=== PATIENT | female | born 1980 | race Hispanic/Latino ===

== ENCOUNTER 2020-06-20 23:21 | Emergency (ER) | payer OTHER, SELFPAY ==
--- NOTE | ~2020-06-20 | CT_ITS ---
EXAMINATION: CT abdomen pelvis w con EXAM DATE: 06/21/2020 01:51 INDICATION: Medial abdominal pain radiating to back. Vomiting and diarrhea. TECHNIQUE: Spiral CT of the abdomen and pelvis was performed following intravenous injection of 100 m L Omnipaque 350. Axial, coronal and sagittal images of the abdomen and pelvis were reviewed. The do se-length product (DLP) for this examination was 367.05 mGy-cm. The exposure was tailored according to patient size (auto mA exposure control), and iterative reconstruction (ASIR) was used as additiona l dose reduction technique. There is no prior study for comparison. FINDINGS: The liver, spleen, adrenal glands and pancreas are unremarkable. There are cholecystectomy clips. Portal and splenic veins are patent. Kidneys enhance symmetrically. There is no hydronephr osis. Heterogeneous uterine enhancement probably phasic. There is peripherally enhancing left ovari an follicle, likely the involuting dominant follicle or hemorrhagic cyst. The bladder is unremarkabl e. There is no retroperitoneal or pelvic lymphadenopathy. There are no findings to suggest appendicitis. There are surgical changes from intact gastric bypass surgery. Fluid-filled colon to the rectum without colonic wall thickening. Correlate for diarrhea/g astroenteritis. No free intraperitoneal gas. The heart is normal in size. There are no pericardi al or pleural effusions. The lung bases are unremarkable. The bones are unremarkable. IMPRESSION: 1. Fluid-filled colon without wall thickening. Consider diarrhea/gastroenteritis. 2. Probable involuting left ovarian hemorrhagic or physiologic cyst. Heterogeneous myometrium could be phasic but pelvic sonogram is better for evaluating these structures. Reviewed, dictated and finalized at location A. IMPRESSION: 1. Fluid-filled colon without wall thickening. Consider diarrhea/gastroenterit is. 2. Probable involuting left ovarian hemorrhagic or physiologic cyst. Heterogen eous myometrium could be phasic but pelvic sonogram is better for evaluating th ruba structures.
[2020-06-20 23:53] VITALS: BP 103/58; PULSE 100; RESP 18; TEMP 36.3; O2SAT 98
[2020-06-21 00:08] LABS: Basophils Absolute Auto 0.1 K/mm3 (0.0-0.1); Basophils Percent Auto 0.5 % (0.2-1.2); Eosinophils Absolute Auto 0.1 K/mm3 (0-0.3); Eosinophils Percent Auto 0.5 % (0-4.4); Hematocrit 38.8 % (37.0-47.0); Hemoglobin 12.9 g/dL (12.0-15.0); Immature Granulocyte Absolute 0.06 K/mm3 (0.00-0.031); Immature Granulocyte Percent A 0.5 % (0-0.5); Lymphocytes Absolute Auto 0.82 K/mm3 (0.9-3.2); Lymphocytes Percent Auto 6.7 % (18.3-44.2); Mean Corpuscular HGB Conc 33.2 g/dl (32-36); Mean Corpuscular Hemoglobin 28.4 pg (26-34); Mean Corpuscular Volume 85.3 fl (80-100); Mean Platelet Volume 11.5 fl (7.4-10.4); Monocytes Absolute Auto 0.7 K/mm3 (0.1-0.6); Monocytes Percent Auto 5.6 % (2.6-8.5); Neutrophils Absolute Auto 10.5 K/mm3 (1.3-6.7); Neutrophils Percent Auto 86.2 % (45.5-73.1); Platelet Count Result 251 k/mm3 (150-375); Red Blood Count 4.55 M/mm3 (4.2-5.4); Red Cell Distribution Width 13.1 % (11.5-14.5); White Blood Count 12.2 K/mm3 (4.5-10.0)
[2020-06-21 00:19] LABS: Potassium 4.1 mmol/L (3.4-5.0)
[2020-06-21 00:23] LABS: Alanine Aminotransferase 18 U/L (4-35); Albumin Level 4.5 g/dL (3.5-5.1); Alkaline Phosphatase 69 U/L (38-126); Anion Gap 5 mmol/L (8-16); Aspartate Amino Transferase 31 U/L (14-36); Bilirubin,Total 0.4 mg/dL (0.2-1.3); Blood Urea Nitrogen 15 mg/dL (7-17); Calcium 8.4 mg/dL (8.4-10.2); Carbon Dioxide 28 mmol/L (22-30); Chloride 105 mmol/L (98-107); Estimated CRCL calculation 99 ml/min; Estimated Glomerular Filt Rate > 60; Glucose 106 mg/dL (65-105); Lipase 105 U/L (23-300); Sodium 138 mmol/L (137-145)
[2020-06-21] MEDS: MORPHINE SULFATE (*CRX) 4 MG/ML INJ IV PUSH (01:26)
[2020-06-21] MEDS: ONDANSETRON INJ 4 MG/2 ML VIAL IV PUSH (01:28)
[2020-06-21 01:37] VITALS: PULSE 70; O2SAT 97
[2020-06-21] MEDS: SODIUM CHLORIDE 0.9% IV 1,000 ML 999 ML IV CONT (01:40)
[2020-06-21 01:54] VITALS: O2SAT 97
[2020-06-21 01:56] VITALS: BP 108/69; PULSE 82; O2SAT 97
[2020-06-21 02:00] VITALS: O2SAT 97
--- NOTE | 2020-06-21 02:00 | PC.NURSE ---
Pt confirmed with CT that she is not .
--- NOTE | 2020-06-21 02:32 | ED.GENADULT ---
HPI - General Adult General Chief complaint: Abdominal Pain Stated complaint: Abd Pain Time Seen by Provider: 06/21/20 00:59 Related Data Allergies Allergy/AdvReac Type Severity Reaction Status Date / Time No Known Allergies Allergy Unverified 06/20/20 23:58 PENDING SALE TO [facility] Social History Social History Gender identity (if verbalized by the patient): Female Sexual Orientation (if Verbalized by the Patient): Straight or Heterosexual Course Vital Signs Vital signs: Vital Signs Temperature 36.3 C L 06/20/20 23:53 Pulse Rate 100 06/20/20 23:53 Respiratory Rate 18 06/20/20 23:53 Blood Pressure 103/58 L 06/20/20 23:53 Pulse Oximetry 98 06/20/20 23:53 Temperature 36.3 C L 06/20/20 23:53 Pulse Rate 100 06/20/20 23:53 Respiratory Rate 18 06/20/20 23:53 Blood Pressure 103/58 L 06/20/20 23:53 Pulse Oximetry 98 06/20/20 23:53 Medical Decision Making Vital Signs Vital Signs: Vital Signs Temperature 36.3 C L 06/20/20 23:53 Pulse Rate 100 06/20/20 23:53 Respiratory Rate 18 06/20/20 23:53 Blood Pressure 103/58 L 06/20/20 23:53 Pulse Oximetry 98 06/20/20 23:53 Temperature 36.3 C L 06/20/20 23:53 Pulse Rate 100 06/20/20 23:53 Respiratory Rate 18 06/20/20 23:53 Blood Pressure 103/58 L 06/20/20 23:53 Pulse Oximetry 98 06/20/20 23:53 Lab Data Result diagrams: 06/20/20 23:59 06/20/20 23:59 Labs: Lab Results 06/20/20 06/20/20 06/21/20 Range/Units 23:59 23:59 02:27 WBC 12.2 H (4.5-10.0) K/mm3 RBC 4.55 (4.2-5.4) M/mm3 Hgb 12.9 (12.0-15.0) g/dL Hct 38.8 (37.0-47.0) % MCV 85.3 (80-100) fl MCH 28.4 (26-34) pg MCHC 33.2 (32-36) g/dl RDW 13.1 (11.5-14.5) % Plt Count 251 (150-375) k/mm3 MPV 11.5 H (7.4-10.4) fl Immature Gran % (Auto) 0.5 (0-0.5) % Neut % (Auto) 86.2 H (45.5-73.1) % Lymph % (Auto) 6.7 L (18.3-44.2) % [place] % (Auto) 5.6 (2.6-8.5) % Eos % (Auto) 0.5 (0-4.4) % Baso % (Auto) 0.5 (0.2-1.2) % Lymph # (Auto) 0.82 L (0.9-3.2) K/mm3 [place] # (Auto) 0.7 H (0.1-0.6) K/mm3 Eos # (Auto) 0.1 (0-0.3) K/mm3 Baso # (Auto) 0.1 (0.0-0.1) K/mm3 Abs Immat Gran (auto) 0.06 H (0.00-0.031) K/mm3 Absolute Neuts (auto) 10.5 H (1.3-6.7) K/mm3 Absolute Nucleated RBC 0.0 (0.0-0.012) K/mm3 Nucleated RBC % 0.0 (0.0-0.2) % Sodium 138 (137-145) mmol/L Potassium 4.1 (3.4-5.0) mmol/L Chloride 105 (98-107) mmol/L Carbon Dioxide 28 (22-30) mmol/L Anion Gap 5 L (8-16) mmol/L BUN 15 (7-17) mg/dL Creatinine 0.60 L (0.7-1.0) mg/dL Estim Creat Clear Calc 99 ml/min Estimated GFR > 60 (59 - ) Glucose 106 H (65-105) mg/dL Calcium 8.4 (8.4-10.2) mg/dL Total Bilirubin 0.4 (0.2-1.3) mg/dL AST 31 (14-36) U/L ALT 18 (4-35) U/L Alkaline Phosphatase 69 (38-126) U/L Total Protein 8.0 (6.3-8.2) g/dL Albumin 4.5 (3.5-5.1) g/dL Lipase 105 (23-300) U/L Urine Color Yellow (Yellow) Urine Appearance Clear (Clear) Urine pH 6.0 (5.0-9.0) Ur Specific [place] 1.005 (1.001-1.035) Urine Protein Negative (Negative) mg/dL Urine Glucose (UA) Negative (Negative) mg/dL Urine Ketones Negative (Negative) mg/dL Ur Blood (Man) Negative (Negative) Urine Nitrate Negative (Negative) Urine Bilirubin Negative (Negative) Urine Urobilinogen Negative (<2.0) mg/dL Leukocyte Esterase Rfl Negative (Negative) JENNIFER/UL Urine RBC 3-5 H (0-2) /hpf Urine WBC 0-3 /hpf Ur Squamous Epith Cells Occasional (Few) /hpf Urine Bacteria Trace /hpf Urine Mucus Rare /lpf Discharge Plan Discharge Clinical Impression: Acute generalized abdominal pain, Nausea & vomiting Patient Disposition: Home, Self-Care Condition: Stable Instructions: Antibiotic Form, Acute Nausea and Vomiting (ED), Abdominal Pain (ED) P
[2020-06-21 02:45] LABS: Add Urine Microscopic? NO; Appearance Urine Clear (Clear); Bacteria Urine Trace /hpf; Bilirubin Urine Negative (Negative); Blood Urine Negative (Negative); Color Urine Yellow (Yellow); Glucose Urine UA Negative (Negative); Ketones Urine Negative (Negative); Leukocyte Esterase Ur Negative LEU/UL (Negative); Mucus Urine Rare /lpf; Nitrate Urine Negative (Negative); Protein Urine Negative (Negative); Squamous Epithelial Cell Urine Occasional /hpf (Few); Urobilinogen Urine Negative mg/dL (<2.0); WBC Urine 0-3 /hpf
[2020-06-21 03:02] LABS: Specific Grav Ur 1.005 (1.001-1.035)
[2020-06-21 03:25] VITALS: BP 110/70; PULSE 76; RESP 20; TEMP 36.7; O2SAT 100
== END 2020-06-21 03:25 | disposition home or self-care (01) ==
PROVIDERS: Emergency Provider Emergency Medicine; PCP Registered Nurse
DX: R10.84 Generalized abdominal pain (principal); R11.2 Nausea with vomiting, unspecified
CPT/HCPCS: 36415; 74177; 80053; 81003; 83690; 85025; 96361; 96374; 96375; 99284; J2270; J2405; J7030; Q9967

== ENCOUNTER 2020-07-25 22:35 | Emergency (ER) | payer OTHER, SELFPAY ==
--- NOTE | ~2020-07-25 | CT_ITS ---
EXAMINATION: CT abdomen pelvis wo con DATE: 07/25/2020 23:49 INDICATION: Abdominal cramping TECHNIQUE: Computed tomography (CT) of the abdomen and pelvis was performed without intravenous contr ast. The dose-length product (DLP) was 342.39 mGy-cm. Automated exposure control and iterative recons truction technique were employed. COMPARISON: 06/21/2020 FINDINGS: Minimal dependent atelectasis is present in the lung bases. The heart size is normal. Surgi josé manuel changes of the stomach are consistent with gastric bypass. The gallbladder is surgically absent. The liver, spleen, pancreas, and adrenal glands are normal. The kidneys are unremarkable. No patholog ically enlarged abdominal or pelvic lymph nodes are identified. There is no free intraperitoneal gas or evidence of bowel obstruction. The uterus is enlarged and demonstrates heterogeneous attenuation t he appendix is normal. There is mild lumbar spondylosis. IMPRESSION: 1. Enlarged and heterogeneous appearing uterus of unclear significance, difficult to further characte rize without intravenous contrast. Consider follow-up pelvic ultrasound. Reviewed, dictated and finalized at location A. IMPRESSION: 1. Enlarged and heterogeneous appearing uterus of unclear significance, difficu lt to further characterize without intravenous contrast. Consider follow-up pel nba ultrasound.
[2020-07-25 22:42] VITALS: BP 99/56; PULSE 59; RESP 22; TEMP 36.8; O2SAT 100
[2020-07-25 22:53] VITALS: BP 104/58; PULSE 62; RESP 20; O2SAT 99
--- NOTE | 2020-07-25 23:36 | ED.ABDPAIN ---
HPI - Abdominal Pain General Chief Complaint: Abdominal Pain Stated Complaint: abdominal pain post pill Time Seen by Provider: 07/25/20 23:09 Source: patient Mode of arrival: ambulatory Limitations: no limitations History of Present Illness HPI narrative: Patient is a 39 year old female who presents with abdominal cramping. Patient does not speak [place], lang interpreter at bedside. Patient reports that she was 8 weeks and seen at clinic yesterday for consultation of . She reports taking Cytotec today at approximately 1730 and now experiencing abdominal pain and cramping. Patient reports pain as 10/10. Patient is Chinese speaking only, lang interpreter at bedside with patient. MD elicited complaint: abdominal pain Related Data Allergies Allergy/AdvReac Type Severity Reaction Status Date / Time No Known Allergies Allergy Verified 07/25/20 23:44 Review of Systems Review of Systems: Narrative: CONSTITUTIONAL: Denies fever, chills, or sweats. EYES: Denies visual changes, redness, or discharge. ENT: Denies rhinorrhea, congestion, sore throat, or otalgia. CARDIOVASCULAR: Denies chest pain, palpitations, or edema. RESPIRATORY: Denies cough or dyspnea. GASTROINTESTINAL: Denies abdominal pain, nausea, vomiting, or diarrhea. GENITOURINARY: Reports pelvic cramping SKIN: Denies rash or itching. MUSCULOSKELETAL: Denies back pain, joint pain, or myalgia. NEUROLOGIC: Denies headache, numbness, dizziness, or weakness. PSYCHIATRIC: Denies anxiety or depression. PMFSH Past Medical History Medical History (Updated 07/26/20 @ 00:56 by HAIM Garcia) No significant past medical history Surgical History Surgical History (Updated 07/26/20 @ 00:56 by HAIM Garcia) History of sleeve gastrectomy Social History Social History (Updated 07/25/20 @ 23:49 by HAIM Garcia) Smoking status: Never smoker Alcohol intake: never Substance use: never Living arrangements: with family Comments At the time of signature, I have reviewed and agree with nursing past medical, surgical, social, and family history unless otherwise noted. Please see nursing chart for further information. There is no relevant family history pertinent to the presenting complaint. Exam Narrative: Exam Narrative: GENERAL: Well-appearing, well-nourished, and in no acute distress. HEAD: Normocephalic, atraumatic. EYES: EOMI. No redness or drainage. Conjunctiva are normal. ENT: Mucous membranes pink and moist. CHEST: No respiratory distress. Clear to auscultation. HEART: Regular rate and rhythm. GI: Soft, nontender without rebound, or guarding. No distention. Bowel sounds normal in all quadrants. MUSCULOSKELETAL: No bony tenderness. EXTREMITIES: Normal range of motion. No edema. SKIN: Warm, dry, no rash. NEURO: No focal deficits. Alert and oriented x3. Gait steady. PSYCH: Normal affect. No signs of depression or anxiety. Course Vital Signs Vital signs: Vital Signs Temperature 36.8 C 07/25/20 22:42 Pulse Rate 59 L 07/25/20 22:42 Respiratory Rate 22 H 07/25/20 22:42 Blood Pressure 99/56 L 07/25/20 22:42 Pulse Oximetry 100 07/25/20 22:42 Temperature 36.8 C 07/25/20 22:42 Pulse Rate 62 07/25/20 22:53 Respiratory Rate 20 07/25/20 22:53 Blood Pressure 104/58 L 07/25/20 22:53 Pulse Oximetry 99 07/25/20 22:53 Reviewed MDM - Abdominal Pain MDM Narrative Medical decision making narrative: Patient's labs are unremarkable, CT shows enlarged and heterogeneous appearing uterus likely from and subsequent . Patient instructed on follow up care. Patient is stable for discharge to home with outpatient follow up as discussed. Lab Data Result diagrams: 07/25/20 23:44 07/25/20 23:44 Labs: Lab Results 07/25/20 07/25/20 Range/Units 23:44 23:44 WBC 11.4 H (4.5-10.0) K/mm3 RBC 3.60 L (4.2-5.4) M/mm3 Hgb 10.0 L (12.0-15.0) g/dL
[2020-07-25 23:50] LABS: Basophils Percent Auto 0.3 % (0.2-1.2); Eosinophils Percent Auto 0.1 % (0-4.4); Hematocrit 30.5 % (37.0-47.0); Immature Granulocyte Absolute 0.03 K/mm3 (0.00-0.031); Immature Granulocyte Percent A 0.3 % (0-0.5); Lymphocytes Absolute Auto 1.53 K/mm3 (0.9-3.2); Lymphocytes Percent Auto 13.4 % (18.3-44.2); Mean Corpuscular HGB Conc 32.8 g/dl (32-36); Mean Corpuscular Hemoglobin 27.8 pg (26-34); Mean Corpuscular Volume 84.7 fl (80-100); Mean Platelet Volume 11.2 fl (7.4-10.4); Monocytes Absolute Auto 0.6 K/mm3 (0.1-0.6); Monocytes Percent Auto 4.8 % (2.6-8.5); Neutrophils Absolute Auto 9.3 K/mm3 (1.3-6.7); Neutrophils Percent Auto 81.1 % (45.5-73.1); Platelet Count Result 261 k/mm3 (150-375); Red Cell Distribution Width 12.5 % (11.5-14.5); White Blood Count 11.4 K/mm3 (4.5-10.0)
[2020-07-25] MEDS: ONDANSETRON INJ 4 MG/2 ML VIAL IV PUSH (23:55)
[2020-07-25] MEDS: MORPHINE SULFATE (*CRX) 2 MG/ML INJ IV PUSH (23:58)
[2020-07-26 00:11] LABS: Anion Gap 3 mmol/L (8-16); Blood Urea Nitrogen 7 mg/dL (7-17); Calcium 8.8 mg/dL (8.4-10.2); Carbon Dioxide 27 mmol/L (22-30); Chloride 104 mmol/L (98-107); Estimated CRCL calculation 121 ml/min; Estimated Glomerular Filt Rate > 60; Glucose 88 mg/dL (65-105); Potassium 3.8 mmol/L (3.4-5.0); Sodium 134 mmol/L (137-145)
--- NOTE | 2020-07-26 00:24 | PC.NURSE ---
repeat glucose 320; EDMD notified.
[2020-07-26 01:07] VITALS: BP 101/56; PULSE 68; RESP 16; O2SAT 98
== END 2020-07-26 01:06 | disposition home or self-care (01) ==
PROVIDERS: Emergency Medicine; Emergency Provider Nurse Practitioner; PCP Pediatrics
DX: R10.30 Lower abdominal pain, unspecified (principal); Z98.84 Bariatric surgery status
CPT/HCPCS: 36415; 74176; 80048; 84702; 85025; 96374; 96375; 99284; J2270; J2405

== ENCOUNTER 2021-11-12 15:41 | Emergency (ER) | payer OTHER, SELFPAY ==
[2021-11-12 16:09] VITALS: BP 118/77; PULSE 80; RESP 16; TEMP 37; O2SAT 100
--- NOTE | 2021-11-12 16:40 | ED.FEMALEGU ---
HPI - Female Genitourinary General Chief complaint: Urogenital-Female Stated complaint: dizziness/ear pain Time Seen by Provider: 11/12/21 16:40 Source: patient and RN notes reviewed Mode of arrival: ambulatory Limitations: no limitations History of Present Illness HPI Narrative: 40-year-old female presented for complaint of left ear pressure for 2 days. States it feels like there is water in the ear and fullness. She endorses a sensation intermittently over several years. She has been told she has inflammation. Patient also voices concern for , endorses nausea, dizziness, and she took a positive test at home. Denies vaginal bleeding, abdominal pain, vomiting, fevers or chills. LMP 8/. Patient requests daughter translate for her as she is primarily [place]-speaking. Related Data Home Medications Medication Instructions Recorded Confirmed Multivitamin 11/12/21 vit no.95-ferrous tablet PO 11/12/21 fumarate 28 mg-folic acid 800 mcg tablet () Allergies Allergy/AdvReac Type Severity Reaction Status Date / Time No Known Allergies Allergy Verified 11/12/21 16:01 Review of Systems Review of Systems: CONSTITUTIONAL: Denies body aches, fever, chills, or sweats. ENT: Endorses left ear pain CARDIOVASCULAR: Denies chest pain, palpitations, or edema. RESPIRATORY: Denies cough or dyspnea. GASTROINTESTINAL: Denies abdominal pain, vomiting, or diarrhea. GENITOURINARY: Reports frequency, urgency, denies hematuria, flank pain SKIN: Denies rash, itching, or wounds. MUSCULOSKELETAL: Denies back pain or myalgia. [facility] Past Medical History Medical History No significant past medical history Surgical History Surgical History History of sleeve gastrectomy Social History Social History Smoking status: Never smoker Alcohol intake: never Substance use: never Gender identity (if verbalized by the patient): Female Sexual Orientation (if Verbalized by the Patient): Straight or Heterosexual Comments At time of signature, I have reviewed and agree with nursing past medical, surgical, social and family history unless otherwise noted. Please see nursing chart for further information. There is no relevant family history pertinent to the presenting complaint Exam Narrative: GENERAL: Well-appearing and in no acute distress. ENT: Mucous membranes pink and moist. Bilateral TMs with normal light reflex. Pharynx normal. CHEST: Clear to auscultation. HEART: Regular rate and rhythm. ABDOMEN: Soft, nontender, nondistended, normal active bowel sounds. No CVA tenderness SKIN: Warm, dry, no rash. NEURO: Alert and oriented x3. Gait steady. PSYCH: Normal affect. Course Course Emergency Course: Patient is aware of diagnosis, understands and agrees to treatment plan. Anticipatory guidance given. Patient agrees to follow-up as directed and is aware of reasons to seek care at the emergency department. Portions of this record may have been created with voice recognition software Level of Care: Express Care Visit Vital Signs Vital signs: Vital Signs Temperature 98.6 F 11/12/21 16:09 Pulse Rate 80 11/12/21 16:09 Respiratory Rate 16 11/12/21 16:09 Blood Pressure 118/77 11/12/21 16:09 Pulse Oximetry 100 11/12/21 16:09 Oxygen Delivery Room Air 11/12/21 16:09 Temperature 98.6 F 11/12/21 16:09 Pulse Rate 80 11/12/21 16:09 Respiratory Rate 16 11/12/21 16:09 Blood Pressure 118/77 11/12/21 16:09 Pulse Oximetry 100 11/12/21 16:09 Oxygen Delivery Room Air 11/12/21 16:09 Reviewed MDM - Female Genitourinary MDM Narrative Medical decision making narrative: Urine preg test positive, result reviewed with pt. Advised supportive measures and signs/symptoms to go to the ER. Pt is appro
== END 2021-11-12 16:50 | disposition home or self-care (01) ==
PROVIDERS: Emergency Provider Nurse Practitioner Family; PCP Registered Nurse
DX: O99.891 Other specified diseases and conditions complicating pregnancy (principal); Z3A.00 Weeks of gestation of pregnancy not specified; H65.02 Acute serous otitis media, left ear
CPT/HCPCS: 81003; 81025; 99212; G0463

== ENCOUNTER 2021-11-23 13:11 | Emergency (ER) | payer OTHER, SELFPAY ==
--- NOTE | ~2021-11-23 | US_ITS ---
EXAMINATION: US OB <=14 wk fetus w TV INDICATION: R/O ectopic. TECHNIQUE: Sonography of the pelvis was performed by transabdominal and transvaginal techniques. COMPARISON: None. RESULT: Uterus: Orientation: Anteverted. 9.1 x 7.1 x 6.0 cm. Myometrium: homogeneous echogenicity . Cervix m easures 3.3 cm. Gestation: - Intrauterine gestational sac: Single present - Yolk sac: 0.21 cm - Embryo: Single possible pole identified. - [place] rump length: 0.42 cm, corresponding gestational age 6 weeks, 1 days -Gestational heart rate: Absent -Subgestational hematoma: Absent Right ovary: 4.0 x 3.2 x 2.8 cm. 2.4 x 1.9 x 2.9 ovarian cystic structure, hypoechoic to ovarian pa renchyma with surrounding color flow. This may represent a hemorrhagic cyst, endometrioma or corpus luteal cyst and does not have the typical sonographic appearance of an ectopic . Left ovary: 2.9 x 2.4 x 1.3 cm. Normal sonographic appearance with physiologic follicles. . Pelvis free fluid: None. IMPRESSION: Single, intrauterine gestation, viability not established. Findings are suspicious for but not diagno stic of failure. Estimated Gestational Age: 6 weeks, 1 days by crown rump length. EDITH by ultrasound 07/18/2022. Reviewed, dictated and finalized at location K. IMPRESSION: Single, intrauterine gestation, viability not established. Findings are suspici ous for but not diagnostic of failure. Estimated Gestational Age: 6 weeks, 1 days by crown rump length. EDITH by ultras ound 07/18/2022.
[2021-11-23 13:14] VITALS: BP 112/65; PULSE 73; RESP 16; TEMP 36.7; O2SAT 100
--- NOTE | 2021-11-23 14:02 | ED.GENADULT ---
HPI - General Adult General Chief complaint: Abdominal Pain Stated complaint: Back pain Time Seen by Provider: 11/23/21 13:48 Limitations: language barrier ( Patient is primarily [place]er-speaking) History of Present Illness HPI narrative: This is a presenting ED with lower abdominal pain. Patient took a test several weeks ago that was positive. Her last menstrual period was October 11. The last 2 weeks she has been having worsening cramping lower abdominal pain that radiates to her back. She denies vaginal bleeding or discharge. Denies dysuria but has had increased urinary frequency and urgency. Patient called her OBGYN earlier today and was instructed to come the emergency department for further evaluation. Related Data Home Medications Medication Instructions Recorded Confirmed Multivitamin 11/12/21 vit no.95-ferrous tablet PO 11/12/21 fumarate 28 mg-folic acid 800 mcg tablet () Allergies Allergy/AdvReac Type Severity Reaction Status Date / Time No Known Allergies Allergy Verified 11/12/21 16:01 Review of Systems Review of Systems: CONSTITUTIONAL: Denies night sweats. EYES: No eye pain ENT: Denies rhinorrhea CARDIOVASCULAR: Denies palpitations RESPIRATORY: Denies hemoptysis GASTROINTESTINAL: Denies hematemesis GENITOURINARY: Denies hematuria. SKIN: Denies rash MUSCULOSKELETAL: Denies myalgia. NEUROLOGIC: Denies weakness. PSYCHIATRIC: Denies delusions PMFSH Past Medical History Medical History (Updated 11/23/21 @ 17:48 by Jose Aden MD) Miscarriage, threatened, early No significant past medical history Surgical History Surgical History History of appendectomy History of sleeve gastrectomy Hx of cholecystectomy Family History Family History (Updated 11/23/21 @ 17:48 by Jose Aden MD) Other Miscarriage, threatened, early Social History Social History Smoking status: Never smoker Alcohol intake: never Substance use: never Gender identity (if verbalized by the patient): Female Sexual Orientation (if Verbalized by the Patient): Straight or Heterosexual Exam Narrative: APPEARANCE: No apparent distress. Head atraumatic. EYES: PERRLA/EOMI, NOSE: Normal no drainage NECK: Supple, Trachea midline RESPIRATORY: CTAB, No increased work of breathing. CARDIOVASCULAR: S1S2 appreciated ABDOMINAL: mild tenderness palpation in the suprapubic area. No adnexal tenderness. No guarding or rebound. MUSCULOSKELETAl: No obvious deformities NEURO: Alert. Moving 4/4 extremities SKIN:: Warm, dry. Normal color PSYCHIATRIC: Normal affect Course Vital Signs Vital signs: Vital Signs Temperature 98.0 F 11/23/21 13:14 Pulse Rate 73 11/23/21 13:14 Respiratory Rate 16 11/23/21 13:14 Blood Pressure 112/65 11/23/21 13:14 Pulse Oximetry 100 11/23/21 13:14 Oxygen Delivery Room Air 11/23/21 13:14 Temperature 98.0 F 11/23/21 13:14 Pulse Rate 73 11/23/21 13:14 Respiratory Rate 16 11/23/21 13:14 Blood Pressure 112/65 11/23/21 13:14 Pulse Oximetry 100 11/23/21 13:14 Oxygen Delivery Room Air 11/23/21 13:14 Medical Decision Making MDM Narrative Medical decision making narrative: This is a 40-year-old female presents to ED with abdominal pain in . Patient will be worked up for ectopic . She had been given Tylenol for pain control. [place] [address]. Transvaginal ultrasound showed a pole dated at 6 weeks and 1 day. There is no visible heart rate. Due to how early is we will obtain a 48 hour qualitative hCG. I spoke with the OBGYN on-call Dr. Bush who is agreeable with this plan. Patient will follow-up in the [facility]. Vital Signs Vital Signs: Vital Signs Temperature 98.0 F 11/23/21 13:1
[2021-11-23 14:27] LABS: Basophils Absolute Auto 0.1 K/mm3 (0.0-0.1); Basophils Percent Auto 0.7 % (0.2-1.2); Eosinophils Absolute Auto 0.1 K/mm3 (0-0.3); Eosinophils Percent Auto 1.1 % (0-4.4); Hematocrit 30.4 % (37.0-47.0); Hemoglobin 9.1 g/dL (12.0-15.0); Immature Granulocyte Absolute 0.02 K/mm3 (0.00-0.031); Immature Granulocyte Percent A 0.2 % (0-0.5); Lymphocytes Absolute Auto 1.83 K/mm3 (0.9-3.2); Lymphocytes Percent Auto 21.6 % (18.3-44.2); Mean Corpuscular HGB Conc 29.9 g/dl (32-36); Mean Corpuscular Hemoglobin 20.6 pg (26-34); Mean Corpuscular Volume 68.9 fl (80-100); Mean Platelet Volume 10.9 fl (7.4-10.4); Monocytes Absolute Auto 0.6 K/mm3 (0.1-0.6); Monocytes Percent Auto 7.3 % (2.6-8.5); Neutrophils Absolute Auto 5.9 K/mm3 (1.3-6.7); Neutrophils Percent Auto 69.1 % (45.5-73.1); Platelet Count Result 313 k/mm3 (150-375); Red Blood Count 4.41 M/mm3 (4.2-5.4); Red Cell Distribution Width 17.2 % (11.5-14.5); White Blood Count 8.5 K/mm3 (4.5-10.0)
[2021-11-23 14:28] LABS: Appearance Urine Clear (Clear); Bilirubin Urine Negative (Negative); Blood Urine Negative (Negative); Color Urine Yellow (Yellow); Glucose Urine UA Negative (Negative); Ketones Urine Negative (Negative); Leukocyte Esterase Ur Negative LEU/UL (Negative); Nitrate Urine Negative (Negative); Protein Urine Negative (Negative); Urobilinogen Urine 0.2 mg/dL (<2.0); pH Urine 6.5 (5.0-9.0)
[2021-11-23 14:32] LABS: Bacteria Urine Trace /hpf; Mucus Urine Rare /lpf; RBC Urine 0-2 /hpf (0-2); Squamous Epithelial Cell Urine Occasional /hpf (Few); WBC Urine 0-3 /hpf
[2021-11-23 14:33] LABS: Add Urine Microscopic? NO
[2021-11-23 14:41] LABS: Anion Gap 9 mmol/L (8-16); Blood Urea Nitrogen 8 mg/dL (7-17); Calcium 8.9 mg/dL (8.4-10.2); Carbon Dioxide 22 mmol/L (22-30); Chloride 105 mmol/L (98-107); Estimated CRCL calculation 101 ml/min; Estimated Glomerular Filt Rate > 60; Glucose 95 mg/dL (65-110); Potassium 4.1 mmol/L (3.4-5.0); Sodium 136 mmol/L (137-145)
[2021-11-23] MEDS: ACETAMINOPHEN 500 MG TABLET 1000 MG PO (15:18)
[2021-11-23 18:09] VITALS: BP 114/72; PULSE 68; RESP 16; O2SAT 100
== END 2021-11-23 18:15 | disposition home or self-care (01) ==
PROVIDERS: Emergency Provider Emergency Medicine; PCP Registered Nurse
DX: O20.0 Threatened abortion (principal); Z3A.01 Less than 8 weeks gestation of pregnancy; Z98.84 Bariatric surgery status
CPT/HCPCS: 36415; 76801; 76817; 80048; 81003; 81025; 84702; 85025; 86850; 86900; 86901; 99284; A9270

== ENCOUNTER 2021-11-25 09:23 | Outpatient (CLI) | payer OTHER, SELFPAY | END 2021-11-25 09:24 | disposition home or self-care (01) | LOC: ANHLAB 09:24 | PROVIDERS: PCP Registered Nurse; Visit Provider Emergency Medicine | DX: O20.0 Threatened abortion (principal); Z3A.00 Weeks of gestation of pregnancy not specified | CPT/HCPCS: 36415; 84702 ==

== ENCOUNTER 2022-05-23 15:36 | Observation (INO) | payer OTHER, SELFPAY ==
[2022-05-23 15:54] VITALS: BP 105/62; PULSE 75; BMI 33.5
--- NOTE | 2022-05-23 15:57 | LDADM ---
This patient, Kayla Abraham, was admitted to OB Post 116 on 05/23/22 at 15:36. Plans for labor, pain management and were discussed with patient. Patient/family oriented to hospital policies and general routines including ID bracelet, bed and alarms, visiting hours, pain management, procedures, bathroom and other care routines, personal items, smoking policy, room service/diet and guest tray routines, security routines, and visiting hours. Patient/Family are encouraged to report perceived risks to care and to ask questions if they do not understand what they are told or what they should do. See OBIX for further documentation.
[2022-05-23 16:01] VITALS: BP 109/62; PULSE 70
[2022-05-23 16:16] VITALS: BP 105/59; PULSE 68
--- NOTE | 2022-05-23 16:21 | PC.NURSE ---
Patient admitted to observation with complaints of 8/10 intermittent abdominal pain as well as continuous lower back pain. Patient states she has been leaking small amounts of fluid for 3 days. Patient states she has not drank any water for the past few days. Cervical exam found patient's cervix to be closed. Patient given full pitcher of water with instructions to PO hydrate. ROM+ test negative. Spoke with Mini Shen CNM at nurses' station. Verbal orders given for a UA to determine hydration status as well as 5mg Flexeril for back pain.
[2022-05-23] MEDS: LACTATED RINGERS 1,000 ML 999 ML IV CONT (16:50)
[2022-05-23] MEDS: CYCLOBENZAPRINE HCL 5 MG TABLET PO (16:57)
[2022-05-23 18:32] LABS: Appearance Urine Clear (Clear); Bacteria Urine None Seen /hpf; Bilirubin Urine Negative (Negative); Blood Urine Negative (Negative); Color Urine Yellow (Yellow); Glucose Urine UA Negative (Negative); Ketones Urine Negative (Negative); Leukocyte Esterase Ur 2+ LEU/UL (Negative); Need Manual Microscopic Reviewed; Nitrate Urine Negative (Negative); Non Pathogenic Casts 0-2; Protein Urine Negative (Negative); RBC Urine 0-2 /hpf (0-2); Specific Grav Ur 1.006 (1.001-1.035); Squamous Epithelial Cell Urine Occasional /hpf (Few); Urobilinogen Urine 0.2 mg/dL (<2.0); WBC Urine 0-5 /hpf
[2022-05-23 18:35] LABS: Add Urine Microscopic? YES
--- NOTE | 2022-05-23 21:31 | PC.NURSE ---
1913 REPORT CALLED TO [facility]RIA TORO. MATERNAL AND STATUS REPORTED. DISCHARGE ORDERS RECEIVED.
--- NOTE | 2022-05-23 21:37 | PC.NURSE ---
1943 DISCHARGE INSTRUCTIONS GIVEN TO PT WRITTEN AND VERBALLY. PT DENIES QUESTIONS OR CONCERNS. PT VERBALIZES UNDERSTANDING. PT LEAVES L&D ACCOMPANIED BY DAUGHTER. NO DISTRESS NOTED.
--- NOTE | 2022-05-27 18:45 | P.PNOB_ITS ---
OB - Triage/Final Diagnosis Visit Information Date of evaluation: 05/23/22 Reason for evaluation: threatened labor Comments/Additional reasons for admission: I have assessed the risk for this patient, Kayla Abraham, and determined that she would benefit from observation care. Evaluation Laboratory results: Laboratory Tests 05/23/22 17:19 Urine Color Yellow Urine Appearance Clear Urine pH 8.0 Ur Specific [place] 1.006 Urine Protein Negative Urine Glucose (UA) Negative Urine Ketones Negative Ur Blood (Man) Negative Urine Nitrate Negative Urine Bilirubin Negative Urine Urobilinogen 0.2 Add Ur Microanalysis Reviewed Leukocyte Esterase Rfl 2+ H Urine RBC 0-2 Urine WBC 0-5 Ur Squamous Epith Cells Occasional Urine Bacteria None seen Urine Casts 0-2
== END 2022-05-23 19:43 | disposition home or self-care (01) ==
PROVIDERS: Advanced Practice Midwife; Admitting Provider Obstetrics & Gynecology; Visit Provider Obstetrics & Gynecology
DX: O47.03 False labor before 37 completed weeks of gestation, third trimester (principal); Z3A.32 32 weeks gestation of pregnancy
CPT/HCPCS: 59025; 81001; 84112; A9270; G0378; G0379; J7120

== ENCOUNTER 2022-07-17 09:51 | Outpatient (CLI) | payer OTHER, SELFPAY ==
[2022-07-17 10:53] LABS: Basophils Percent Auto 0.7 % (0.2-1.2); Eosinophils Absolute Auto 0.1 K/mm3 (0-0.3); Eosinophils Percent Auto 0.9 % (0-4.4); Hematocrit 29.4 % (37.0-47.0); Hemoglobin 8.9 g/dL (12.0-15.0); Immature Granulocyte Absolute 0.02 K/mm3 (0.00-0.031); Immature Granulocyte Percent A 0.4 % (0-0.5); Lymphocytes Absolute Auto 1.19 K/mm3 (0.9-3.2); Lymphocytes Percent Auto 21.3 % (18.3-44.2); Mean Corpuscular HGB Conc 30.3 g/dl (32-36); Mean Corpuscular Hemoglobin 23.6 pg (26-34); Mean Platelet Volume 10.9 fl (7.4-10.4); Monocytes Absolute Auto 0.4 K/mm3 (0.1-0.6); Neutrophils Absolute Auto 3.9 K/mm3 (1.3-6.7); Neutrophils Percent Auto 69.7 % (45.5-73.1); Platelet Count Result 220 k/mm3 (150-375); Red Blood Count 3.77 M/mm3 (4.2-5.4); White Blood Count 5.6 K/mm3 (4.5-10.0)
[2022-07-17 11:44] LABS: HIV 1/2 Ab P24 Ag Result Negative (Negative)
[2022-07-17 12:42] LABS: Rapid Plasma Reagin Non-Reactive (NonReactive)
== END 2022-07-17 09:52 | disposition home or self-care (01) ==
PROVIDERS: PCP Registered Nurse; Visit Provider Obstetrics & Gynecology
DX: Z01.812 Encounter for preprocedural laboratory examination (principal)
CPT/HCPCS: 36415; 85025; 86592; 86703; 86850; 86900; 86901; G0432

== ENCOUNTER 2022-07-18 05:30 | Inpatient (IN) | payer OTHER, SELFPAY ==
[2022-07-18] VITALS (47 sets, daily range): BP systolic 66–118; BP diastolic 27–85; PULSE 51–93; RESP 12–18; TEMP 36.1–36.8; O2SAT 94–100; BMI 34.3
[2022-07-18] MEDS: LACTATED RINGERS 1,000 ML 999 ML IV CONT (06:05)
--- NOTE | 2022-07-18 06:11 | LDADM ---
This patient, Kayla Abraham, was admitted to Labor/Delivery/Recovery 120 on 07/18/22 at 05:30. Plans for labor, pain management and were discussed with patient. Patient/family oriented to hospital policies and general routines including ID bracelet, bed and alarms, visiting hours, pain management, procedures, bathroom and other care routines, personal items, smoking policy, room service/diet and guest tray routines, security routines, and visiting hours. Patient/Family are encouraged to report perceived risks to care and to ask questions if they do not understand what they are told or what they should do. See OBIX for further documentation.
--- NOTE | 2022-07-18 06:41 | P.PNAN_ITS ---
Anes - Eval Pre Procedure Procedure: Operation Date: 07/18/22 07:30 Proposed Procedures p Repeat Section - Cedric Bush MD Date/Time: 07/18/22 06:41 Pre Op Diagnosis: Patient Data Age: 41 Gender: F Height: 1.6 m Weight: 88 kg Last Vital Signs Temp 36.1 C L 07/18/22 05:47 Pulse 62 07/18/22 05:47 BP 110/55 L 07/18/22 05:47 Pulse Ox 98 07/18/22 05:47 Allergies Allergy/AdvReac Type Severity Reaction Status Date / Time No Known Allergies Allergy Verified 06/18/22 06:29 Home Medications Medication Instructions Recorded Confirmed Type ferrous sulfate 325 mg (65 mg 325 mg PO BID 06/19/22 07/18/22 History iron) tablet Patient hx anesthesia problems: none Family hx anesthesia problems: none Results Review: All pre-operative results and documents have been reviewed as part of the pre- operative evaluation. [facility] Past Medical History Medical History Miscarriage, threatened, early No significant past medical history Surgical History Surgical History History of appendectomy History of sleeve gastrectomy Hx of cholecystectomy Family History Family History Mother Diabetes mellitus High cholesterol Mother Hypertension Son Epilepsy Other Miscarriage, threatened, early Social History Social History Smoking packs per day: 1 Smoking cigarettes per day: 20.0 Years smoked: 14 Smoking pack-years: 14.00 Smoking status: Former smoker Tobacco type: cigarettes Second hand tobacco smoke exposure: No Alcohol intake: never Substance use: never Lack of Transportation: No Lack of Food: Never True Current Housing: I Have Housing Concerned About Future Housing: No Difficulty Paying Gas/Electric Bills: No Difficulty Paying for Meds: No Currently Unemployed: No Education: Grade School Difficulty w/ Childcare or Family Care: No Living arrangements: with family Gender identity (if verbalized by the patient): Female Sexual Orientation (if Verbalized by the Patient): Straight or Heterosexual Spiritual care concerns: No Exam Day of Procedure 07/18/22 06:41 Patient weight: obese Heart: regular rate and rhythm Lungs: normal air movement Airway: Mallampati scale Neurological: alert and oriented
--- NOTE | 2022-07-18 07:27 | WPDHPUPDATE1 ---
History and Physical Update Update Date/Time: 07/18/22 07:27 History and Physical has been reviewed, including an updated exam of the patient. There are NO changes in the patient's condition. Risks, benefits, and alternatives have been discussed and questions answered. Patient agrees to proceed with procedure.
--- NOTE | 2022-07-18 07:27 | PM.IMHP ---
H&P: HPI History of Present Illness Date/Time: 07/18/22 07:27 Chief Complaint: Term Narrative: this patient is a 41-year-old multiparous female with previous delivery. Time she male sterilization. We have agreed to proceed with delivery and bilateral salpingectomy. She understands the risks. She understands injuries may occur that result in hospitalization, more surgery, and severe illness. She understands that the risk injury, infection, and hemorrhage. She denies any chest pain shortness of breath. She denies any nausea, vomiting, fever, chills. Review of Systems Review of Systems: All systems reviewed & are unremarkable except as noted in HPI and below Constitutional: Constitutional: Denies chills, Denies fatigue, Denies fever(s) and Denies weakness Eyes: Eyes: Denies blurry vision, Denies change in vision, Denies loss of peripheral vision, Denies loss of vision, Denies other visual disturbances and Denies eye pain ENT: Denies vertigo, Denies dizziness, Denies hearing loss, Denies mouth pain, Denies nasal obstruction, Denies neck mass and Denies neck pain Cardiovascular: Cardiovascular: Denies chest pain, Denies diaphoresis, Denies syncope, Denies leg edema and Denies dyspnea Respiratory: Respiratory: Denies chest congestion, Denies cough, Denies hemoptysis, Denies dyspnea and Denies wheezing Gastrointestinal: Gastrointestinal: Denies abdominal pain, Denies constipation, Denies diarrhea, Denies nausea and Denies vomiting Genitourinary: Genitourinary: Denies hematuria, Denies change in libido, Denies nocturia, Denies genital lesions, Denies flank pain and Denies urinary urgency Musculoskeletal: Musculoskeletal: Denies abnormal gait, Denies back pain, Denies myalgias, Denies arthralgias, Denies joint swelling, Denies muscle weakness and Denies neck pain Integumentary/Breasts: Skin/Breast: Denies swelling, Denies breast pain, Denies breast mass, Denies dry skin, Denies nipple discharge, Denies unusual bruising and Denies jaundice Neurologic: Denies Neuro-related abnormal movements, Denies Abnormal speech present, Denies abnormal gait, Denies behavioral changes, Denies confusion, Denies vertigo, Denies dizziness, Denies syncope, Denies loss of vision, Denies memory loss, Denies convulsions and Denies weakness Psychiatric: Psychiatric: Denies abnormal sleep pattern, Denies behavioral changes, Denies change in libido, Denies confusion, Denies depression, Denies anhedonia and Denies memory loss Endocrine: Endocrine: Reports no additional endocrine complaints, Denies change in libido and Denies fatigue Hematologic/Lymphatic: Hematologic/Lymphatic: Reports no additional hematologic/lymphatic complaints Allergic/Immunologic: Allergic/Immunologic: Reports no additional allergic/immunologic complaints and Denies wheezing PMFSH Past Medical History Medical History Miscarriage, threatened, early No significant past medical history Surgical History Surgical History History of appendectomy History of sleeve gastrectomy Hx of cholecystectomy Family History Family History Mother Diabetes mellitus High cholesterol Mother Hypertension Son Epilepsy Other Miscarriage, threatened, early Social History Social History Smoking packs per day: 1 Smoking cigarettes per day: 20.0 Years smoked: 14 Smoking pack-years: 14.00 Smoking status: Former smoker Tobacco type: cigarettes Second hand tobacco smoke exposure: No Alcohol intake: never Substance use: never Lack of Transportation: No Lack of Food: Never True Current Housing: I Have Housing Concerned About Future Housing: No Difficulty Paying Gas/Electric Bills: No Difficulty Payi
[2022-07-18] MEDS: ceFAZolin 2 GM/D5W 50 ML 2 GM/50 ML BAG IVPB (07:37)
--- NOTE | 2022-07-18 09:00 | W.PM.PROC2 ---
Procedure Note - Detailed Date of Procedure 07/18/22 Pre-op Diagnosis , female sterilization Post-op Diagnosis Same Procedure Performed Low-transverse section, bilateral salpingectomy Surgeon Cedric Bush MD Anesthesia Spinal Findings Normal gestational maternal anatomy, average size infant, normal Apgars. Description of Procedure The patient was taken the operating room. She was prepped and draped in dorsal supine position with a leftward tilt. This was done after spinal anesthetic was applied. A low-transverse skin incision was made and carried down till of the fascia with the knife. The fascial incision was made with the knife. The fascial incision was extended laterally with Tan scissors. The fascia was tented upward superiorly and inferiorly the rectus muscles were dissected off bluntly. The rectus muscles were the midline. The preperitoneal fat and peritoneum were dissected open bluntly at the superior aspect of the rectus muscles. The peritoneal incision was extended superior and inferior with good position of bladder. The uterine incision was made with a scalpel down to the level of the amniotic cavity. The amniotic cavity was entered bluntly. The was delivered. The cord was clamped and cut and the infant was handed off to waiting pediatric staff. Cord bloods were obtained. The placenta was removed manually. The uterus was exteriorized. The uterus was cleared of all clots, debris and membranes. The uterus was closed in 0 Vicryl running lock fashion. An imbricating over a was placed along the incision line as well. Each fallopian tube was grasped and raised with a [place]. With from the underlying venous structures. The mesosalpinx between the tube and the rest the adnexa was cauterized and transected with LigaSure cautery. It was performed from the distal tube near the ovary in a stepwise fashion towards the cornua. The tube at the cornua was cauterized transected with LigaSure cautery. This was performed in a bilateral fashion. The uterus was returned to the abdomen. The gutters were cleared of all clots and debris. The fascia was closed with 0 Vicryl running fashion. The subcutaneous tissue was irrigated pinpoint bleeders were cauterized. The skin was closed with subcuticular absorbable luke. The skin incision line was covered with glue. The patient tolerated the procedure well. She has taken recovery room in stable condition. Sponge lap and needle counts were correct x2. Complications No immediate complications Condition Stable Disposition PACU
[2022-07-18] MEDS: diphenhydrAMINE HCl INJ 50 MG/ML VIAL 25 MG IV PUSH ×3 (09:07→20:21)
[2022-07-18] MEDS: fentaNYL CITRATE INJ (*CRX) 100 MCG/2 ML VIAL 25 MCG IV PUSH ×5 (09:09→10:41)
[2022-07-18] MEDS: OXYTOCIN 30 UNITS/NS 500 ML 30 UNITS/500 ML BAG 125 UNITS IV CONT (09:22)
[2022-07-18] MEDS: KETOROLAC 30 MG/ML VIAL (*BKC) IV PUSH (10:07)
--- NOTE | 2022-07-18 11:10 | OBPPTRN ---
Patient transferred to post room #281 via stretcher. Support person present. Oriented to unit, room, information board, rooming in, admission packet and security measures. Patient verbalizes understanding.
[2022-07-18] MEDS: HYDROcodone/acetaminophen (*CRX) 10-325 MG TABLET 1 TAB PO ×3 (12:01→20:22)
[2022-07-18] MEDS: DEXTROSE 5%/0.45% SOD CHL 1,000 ML 125 ML IV CONT (13:22)
[2022-07-18] MEDS: LORATADINE 10 MG TABLET PO (15:05)
[2022-07-18] MEDS: SIMETHICONE 80 MG TAB.CHEW PO (17:03)
[2022-07-18] MEDS: IBUPROFEN 600 MG TABLET PO (17:03)
[2022-07-18] MEDS: DOCUSATE SODIUM 100 MG CAPSULE PO (17:04)
[2022-07-18] MEDS: POLYSACCHARIDE IRON COMPLEX 150 MG CAPSULE PO (17:04)
[2022-07-19 00:05] VITALS: BP 99/62; PULSE 78; RESP 18; TEMP 37; O2SAT 97
[2022-07-19] MEDS: diphenhydrAMINE HCl INJ 50 MG/ML VIAL 25 MG IV PUSH ×2 (00:07→04:58)
[2022-07-19] MEDS: HYDROcodone/acetaminophen (*CRX) 10-325 MG TABLET 1 TAB PO ×2 (00:07→04:35)
[2022-07-19] MEDS: SIMETHICONE 80 MG TAB.CHEW PO ×4 (00:09→16:11)
[2022-07-19] MEDS: ZOLPIDEM TARTRATE (*CRX) 5 MG TABLET PO (00:15)
[2022-07-19 05:08] LABS: Basophils Absolute Auto 0.1 K/mm3 (0.0-0.1); Basophils Percent Auto 0.5 % (0.2-1.2); Eosinophils Absolute Auto 0.1 K/mm3 (0-0.3); Eosinophils Percent Auto 0.5 % (0-4.4); Hematocrit 23.7 % (37.0-47.0); Hemoglobin 7.2 g/dL (12.0-15.0); Immature Granulocyte Absolute 0.04 K/mm3 (0.00-0.031); Immature Granulocyte Percent A 0.4 % (0-0.5); Mean Corpuscular HGB Conc 30.4 g/dl (32-36); Mean Corpuscular Hemoglobin 24.2 pg (26-34); Mean Corpuscular Volume 79.5 fl (80-100); Mean Platelet Volume 11.7 fl (7.4-10.4); Monocytes Absolute Auto 0.5 K/mm3 (0.1-0.6); Monocytes Percent Auto 4.8 % (2.6-8.5); Neutrophils Absolute Auto 8.8 K/mm3 (1.3-6.7); Neutrophils Percent Auto 87.8 % (45.5-73.1); Platelet Count Result 179 k/mm3 (150-375); Red Blood Count 2.98 M/mm3 (4.2-5.4); Red Cell Distribution Width 15.9 % (11.5-14.5); White Blood Count 10.1 K/mm3 (4.5-10.0)
--- NOTE | 2022-07-19 06:36 | PM.OBPNVD ---
OB - PN: Subj Subjective Date/time seen: 07/19/22 06:36 Patient comments: no complaints, pain well controlled, tolerating diet and flatus present OB - PN: Obj Data Labs 07/19/22 04:35 Labs: Laboratory Results - last 24 hr 07/19/22 04:35 WBC 10.1 H RBC 2.98 L Hgb 7.2 L Hct 23.7 L MCV 79.5 L MCH 24.2 L MCHC 30.4 L RDW 15.9 H Plt Count 179 MPV 11.7 H Immature Gran % (Auto) 0.4 Neut % (Auto) 87.8 H Lymph % (Auto) 6.0 L [place] % (Auto) 4.8 Eos % (Auto) 0.5 Baso % (Auto) 0.5 Lymph # (Auto) 0.60 L [place] # (Auto) 0.5 Eos # (Auto) 0.1 Baso # (Auto) 0.1 Abs Immat Gran (auto) 0.04 H Absolute Neuts (auto) 8.8 H Absolute Nucleated RBC 0.0 Nucleated RBC % 0.0 OB - PN A/P Plan day: 1 Comments: Post Op LTCS - no problems, routine recovery Time Spent With Patient Time: Total time spent is greater than 50% in coordination of care (as documented) at patient's floor/unit and/or counseling patient: Exam Const: General: cooperative, healthy appearing, comfortable and no acute distress Resp: Auscultation: no crackles, no rales, no rhonchi and no wheezes Cardio: Rhythm: regular rhythm Heart sounds: no click and no murmurs GI: Inspection: non-distended Auscultation: normal bowel sounds Extrem: General: normal to inspection, no pedal edema and no calf tenderness
[2022-07-19 07:30] VITALS: BP 103/63; PULSE 79; RESP 18; TEMP 37.2
[2022-07-19] MEDS: IBUPROFEN 600 MG TABLET PO ×2 (08:13→16:11)
[2022-07-19] MEDS: oxyCODONE/ACETAMINOPHEN (*CRX) 5-325 MG TABLET 2 TABLET PO ×4 (08:13→19:51)
[2022-07-19] MEDS: DOCUSATE SODIUM 100 MG CAPSULE PO ×2 (08:14→16:11)
[2022-07-19] MEDS: POLYSACCHARIDE IRON COMPLEX 150 MG CAPSULE PO ×2 (09:37→16:10)
[2022-07-19] MEDS: predniSONE 10 MG TABLET PO (09:37)
[2022-07-19] MEDS: MULTIVIT/MIN/PREN/FOL AC/IRON TABLET 1 TAB PO (09:37)
--- NOTE | 2022-07-19 18:25 | WPDANLDNPN2 ---
Anes-Prog Note L&D-Neuraxial Date/Time: 07/19/22 18:25 Patient feedback: Patient satisfied with post-operative pain management.
--- NOTE | 2022-07-19 18:25 | WPDANLDPN2 ---
Anes-Prog Note L&D Date/Time: 07/19/22 18:25 Neuro status: Neuro function grossly intact. Cardiovascular status: normal Respiratory status: normal Airway patency: baseline Mental status: baseline Post-Op hydration status: normal Vital Signs: Last Vital Signs Temp 37.2 C 07/19/22 07:30 Pulse 79 07/19/22 07:30 Resp 18 07/19/22 07:30 BP 103/63 07/19/22 07:30 Pulse Ox 97 07/19/22 00:05 O2 Del Method Room Air 07/19/22 00:26 Pain score (VAS): 0 I/O: Intake & Output 07/19/22 07/19/22 07/19/22 07:59 15:59 23:59 Intake Total 740 Output Total 975 Balance -235 Post-procedural complaints: none Patient feedback: Patient satisfied with anesthetic care.
[2022-07-19 19:41] VITALS: BP 112/62; PULSE 76; RESP 16; TEMP 36.6; O2SAT 99
[2022-07-20] MEDS: oxyCODONE/ACETAMINOPHEN (*CRX) 5-325 MG TABLET 2 TABLET PO ×3 (00:38→08:13)
[2022-07-20] MEDS: DOCUSATE SODIUM 100 MG CAPSULE PO (08:12)
[2022-07-20] MEDS: IBUPROFEN 600 MG TABLET PO (08:12)
[2022-07-20] MEDS: POLYSACCHARIDE IRON COMPLEX 150 MG CAPSULE PO (08:12)
[2022-07-20] MEDS: MULTIVIT/MIN/PREN/FOL AC/IRON TABLET 1 TAB PO (08:12)
[2022-07-20] MEDS: predniSONE 5 MG TABLET PO (08:12)
[2022-07-20 08:15] VITALS: BP 106/65; PULSE 81; RESP 16; TEMP 36.7; O2SAT 99
--- NOTE | 2022-07-20 10:03 | PC.NURSE ---
Patient encouraged to view the discharge video Mother & Baby Care, The First Two Weeks online. Patient was given the opportunity and encouraged to ask questions. Patient verbalized understanding of information shared and has been given the mother/baby guide for home reference.
--- NOTE | 2022-07-20 10:20 | PM.OBPNVD ---
OB - PN: Subj Subjective Date/time seen: 07/20/22 10:20 day 2 s/p section doing well pain well managed bottle feeding flatus present OB - PN: Obj Data Labs 07/19/22 04:35 OB - PN A/P Plan day: 2 Plan: routine care and discharge home Time Spent With Patient Time: Total time spent is greater than 50% in coordination of care (as documented) at patient's floor/unit and/or counseling patient: Review of Systems Review of Systems: All systems reviewed & are unremarkable except as noted in HPI and below Exam Const: General: cooperative, healthy appearing and comfortable Chest: Chest palpation & inspection: normal inspection of the chest Resp: Effort & Inspection: normal respiratory effort GI: Other: incision CDI Skin: General skin exam: normal color Extrem: General: normal to inspection
--- NOTE | 2022-07-20 10:24 | PM.OBDSVD ---
DS: Admitting Diagnosis Discharge Date 07/20/22 Admitting Diagnosis repeat cearean section DS: Discharge Diagnosis Discharge Diagnosis (1) Previous delivery, delivered: Code(s): O34.219 - Maternal care for unspecified type scar from previous delivery Status: Acute OB - DS: Summary OB Procedures : None OB Procedures Intrapartum: OB Procedures: : None Peripartum Data Procedures: Procedures Operation Date: 07/18/22 07:30 Actual Procedure Side Surgeon p Section Cedric Bush MD Time Spent with Patient Time attestation: Total time spent providing and/or coordinating discharge services: DS: Data Data Completed and Pending Pending studies at discharge: Pending at discharge 07/18/22 08:36 Surgical [PTH] Routine Discharge Plan Discharge Attending physician on discharge: Cedric Bush Discharging Clinician: Mini Shen Patient Disposition: Home, Self-Care Activity: pelvic rest Diet: regular Patient Instructions: Antibiotic Form Stand Alone Forms: General Discharge Information Follow-up/Referrals: Cedric Bush MD [Physician] - 1 Week Discharge Medications: New oxycodone-acetaminophen 5-325 mg Tablet 2 tablet PO Q4H PRN (Reason: Pain Rated 7-10) Qty: 30 0RF polysaccharide iron complex 150 mg iron Capsule 150 mg PO BIDWM Qty: 60 0RF ibuprofen 600 mg Tablet 600 mg PO Q6H PRN (Reason: Cramping) Qty: 30 0RF Discontinued ferrous sulfate 325 mg (65 mg iron) Tablet 325 mg PO BID Date of admission: 07/18/22 05:30 Primary Care Provider: ShelbiMaury Admitting Provider: Cedric Bush Attending physician on admission: Cedric Bush Condition: Stable
[2022-07-22 08:37] VITALS: BP 116/75; PULSE 72; RESP 16; TEMP 36.8; O2SAT 100
== END 2022-07-20 12:15 | disposition home or self-care (01) | DRG 540 ==
LOC: ANHLDR 05:38 → ANHOB2 11:13
PROVIDERS: Admitting Provider Obstetrics & Gynecology; PCP Registered Nurse; Visit Provider Obstetrics & Gynecology
PROC: 10D00Z1 Extraction of Products of Conception, Low, Open Approach (ICD-10-PCS; CPT 59514; principal; 2022-07-18 07:30)
DX: O34.219 Maternal care for unspecified type scar from previous cesarean delivery (principal); Z30.2 Encounter for sterilization; Z90.49 Acquired absence of other specified parts of digestive tract; Z98.84 Bariatric surgery status; Z87.891 Personal history of nicotine dependence; Z3A.40 40 weeks gestation of pregnancy; Z37.0 Single live birth
CPT/HCPCS: 36415; 85025; 88302; A9270; J0131; J0690; J1200; J1885; J2250; J2274; J2405; J2590; J3010; J7120; J7512

== ENCOUNTER 2022-08-15 11:46 | Outpatient (CLI) | payer OTHER, SELFPAY ==
--- NOTE | ~2022-08-15 | CT_ITS ---
EXAMINATION: CT guide absc cath placement DATE: 08/15/2022 13:34 INDICATION: Abdominal wall abscess. TECHNIQUE: The procedure including the risks, benefits, and alternatives was discussed with the patie nt. Risks discussed included bleeding and infection. The patient understood the risks and benefits an d agreed to proceed. The patient was confirmed to be receiving appropriate antibiotic coverage. The skin overlying the abdomen was prepped and draped in usual sterile fashion. Anesthetic was administe red with 1% lidocaine subcutaneously. An 18 gauge trochar needle was inserted into the abdominal absc ess with CT guidance. The needle was exchanged over a wire for 6 Polish and 8 Polish dilators and the n for an 8.5 Polish pigtail catheter. The catheter was stitched to the skin, and a sterile dressing w as applied. The mA was adjusted according to patient size. Iterative reconstruction technique was emp loyed. The dose-length product was 116.85 mGy-cm. There were no immediate complications. FINDINGS: CT images demonstrate the catheter within the anterior abdominal wall abscess. 50 mL fluid was aspirated for testing. 250 mL fluid was aspirated and discarded. IMPRESSION: 1. Successful CT-guided anterior abdominal wall abscess drainage. 2. 50 mL serosanguineous fluid was sent for aerobic and anaerobic cultures. Reviewed, dictated and finalized at location A.
[2022-08-15 13:30] VITALS: BP 128/84; PULSE 76; RESP 18; O2SAT 100
== END 2022-08-15 11:47 | disposition home or self-care (01) ==
PROVIDERS: PCP Registered Nurse; Visit Provider Obstetrics & Gynecology
DX: K65.1 Peritoneal abscess (principal)
CPT/HCPCS: 75989; 87070; 87075; 87205; C1729; C1769

== ENCOUNTER 2023-11-24 19:08 | Emergency (ER) | payer OTHER, SELFPAY ==
--- NOTE | ~2023-11-24 | CT_ITS ---
CT scan of the bilateral orbits CLINICAL HISTORY: Right eye redness, swelling, pain TECHNIQUE: Following intravenous administration of 75 cc of Omnipaque 350 contrast material, axial im aging of the bilateral orbits was performed. Sagittal and coronal reformatted images were constructed . Dose reduction technique was used on this scan by utilizing automated exposure control and iterativ e reconstruction technique. The dose-length product (DLP) was 186.73 mGy-cm. Findings: Osseous structures are intact. No fracture seen. Paranasal sinuses and mastoid air cells ar e clear. Globes are symmetric in size and position. Extraocular muscles appear unremarkable. Optic nerve sheat h complexes are unremarkable. No intraorbital abnormality identified. No soft tissue mass or fluid co llection identified. IMPRESSION: No significant abnormality seen. Reviewed, dictated and finalized at [facility].
[2023-11-24 19:24] VITALS: BP 117/70; PULSE 87; RESP 16; TEMP 36.7; O2SAT 100
--- NOTE | 2023-11-24 21:19 | ED.EYEPROB ---
HPI - Eye Problem General Chief complaint: Eye Problems <Afua Leary PA-C - Last Filed: 11/27/23 09:22> Stated complaint: eye irritation <Afua Leary PA-C - Last Filed: 11/27/23 09:22> Time Seen by Provider: 11/24/23 20:58 <Afua Leary PA-C - Last Filed: 11/27/23 09:22> Source: patient <Afua ARYA Puente Last Filed: 11/27/23 09:22> Mode of arrival: ambulatory <ARYA Long Last Filed: 11/27/23 09:22> Limitations: no limitations <Afua Leary PA-C - Last Filed: 11/27/23 09:22> History of Present Illness HPI Narrative: This is a 42 year old female that presents to the ER for eye problems. Reports over the last 4 days she has had redness and swelling around her right eye. Reports she started to note some blurry vision as well. She has some swollen lymph nodes under her chin that are painful. Denies fevers. <Afua Leary PA-C - Last Filed: 11/27/23 09:22> Related Data Allergies/adverse reactions: Allergies Allergy/AdvReac Type Severity Reaction Status Date / Time No Known Allergies Allergy Verified 11/24/23 19:23 <Afua Leary PA-C - Last Filed: 11/27/23 09:22> Review of Systems Review of Systems: CONSTITUTIONAL: Denies fever EYES: Reports visual changes, redness, and discharge. <Afua Leary PA-C - Last Filed: 11/27/23 09:22> All systems reviewed & are unremarkable except as noted in HPI and below <Afua Leary PA-C - Last Filed: 11/27/23 09:22> [facility] Past Medical History Medical History: Medical History Miscarriage, threatened, early No significant past medical history <ARYA Long Last Filed: 11/27/23 09:22> Surgical History Surgical History: Surgical History History of appendectomy History of sleeve gastrectomy Hx of cholecystectomy <Afua Leary PA-C - Last Filed: 11/27/23 09:22> Family History Family History: Family History Mother Diabetes mellitus High cholesterol Mother Hypertension Son Epilepsy Other Miscarriage, threatened, early <Afua Leary PA-C - Last Filed: 11/27/23 09:22> Social History Social History: Social History Smoking packs per day: 1 Smoking cigarettes per day: 20.0 Years smoked: 14 Smoking pack-years: 14.00 Smoking status: Former smoker Tobacco type: cigarettes Second hand tobacco smoke exposure: No Alcohol intake: never Substance use: never Lack of Transportation: No Lack of Food: Never True Current Housing: I Have Housing Concerned About Future Housing: No Difficulty Paying Gas/Electric Bills: No Difficulty Paying for Meds: No Currently Unemployed: No Education: Don't Know Difficulty w/ Childcare or Family Care: No Living arrangements: with family Gender identity (if verbalized by the patient): Female Sexual Orientation (if Verbalized by the Patient): Straight or Heterosexual Spiritual care concerns: Yes (anglican) <Afua Leary PA-C - Last Filed: 11/27/23 09:22> Exam Narrative: GENERAL: Well-appearing, well-nourished, and in no acute distress. HEAD: Normocephalic, atraumatic. EYES: PERRLA and EOMI. Right conjunctival injection. Mild swelling and redness to the right upper and lower eyelids. No abnormal drainage ENT: Nares clear, no rhinorrhea or epistaxis. Mucous membranes moist. Oropharynx without tonsillar hypertrophy exudate or other lesions. Bilateral TMs pearly monk non-bulging NECK: Supple. No adenopathy or masses CHEST: Clear to auscultation. No respiratory distress. No wheezes rales or rhonchi HEART: Regular rate and rhythm. No murmur heard. Normal peripheral pulses. EXTREMITIES: Normal range of motion. No edema. SKI
[2023-11-24 22:56] VITALS: BP 123/79; PULSE 75; RESP 20; O2SAT 100
[2023-11-24 23:01] VITALS: BP 122/76; PULSE 81; O2SAT 100
[2023-11-24 23:16] VITALS: BP 115/79; PULSE 91; RESP 14; O2SAT 100
[2023-11-24 23:27] LABS: Basophils Absolute Auto 0.1 K/mm3 (0.0-0.1); Basophils Percent Auto 1.1 % (0.2-1.2); Eosinophils Absolute Auto 0.2 K/mm3 (0-0.3); Hematocrit 28.3 % (37.0-47.0); Hemoglobin 7.7 g/dL (12.0-15.0); Immature Granulocyte Absolute 0.02 K/mm3 (0.00-0.031); Immature Granulocyte Percent A 0.3 % (0-0.5); Immature Platelet Fraction Pct 7.2 % (0.9-11.2); Lymphocytes Absolute Auto 2.35 K/mm3 (0.9-3.2); Lymphocytes Percent Auto 31.1 % (18.3-44.2); Mean Corpuscular HGB Conc 27.2 g/dl (32-36); Mean Corpuscular Hemoglobin 17.5 pg (26-34); Mean Corpuscular Volume 64.5 fl (80-100); Mean Platelet Volume 11.2 fl (7.4-10.4); Monocytes Absolute Auto 0.6 K/mm3 (0.1-0.6); Monocytes Percent Auto 8.3 % (2.6-8.5); Neutrophils Absolute Auto 4.3 K/mm3 (1.3-6.7); Neutrophils Percent Auto 56.2 % (45.5-73.1); Platelet Count Result 300 k/mm3 (150-375); Red Blood Count 4.39 M/mm3 (4.2-5.4); Red Cell Distribution Width 19.8 % (11.5-14.5); White Blood Count 7.6 K/mm3 (4.5-10.0)
[2023-11-24 23:31] VITALS: BP 119/67; PULSE 89; O2SAT 100
[2023-11-24 23:46] VITALS: BP 117/77; O2SAT 100
[2023-11-24 23:46] LABS: Hypochromasia 1+; Ovalocytes 1+; Platelet Estimate Adequate (Adequate); Schistocytes None Seen
[2023-11-24 23:54] LABS: Erythrocyte Sedimentation Rate 19 mm/hr (0-20)
[2023-11-25] VITALS (15 sets, daily range): BP systolic 111–125; BP diastolic 69–81; PULSE 73–86; RESP 16–17; O2SAT 99–100
[2023-11-25 00:17] LABS: Anion Gap 12 mmol/L (4-12); Blood Urea Nitrogen 9 mg/dL (7-17); CRP < 0.5 mg/dL (<1.0); Calcium 9.1 mg/dL (8.4-10.2); Carbon Dioxide 24 mmol/L (22-30); Chloride 101 mmol/L (98-107); Estimated CRCL calculation 120 ml/min; Estimated Glomerular Filt Rate > 60; Glucose 88 mg/dL (65-110); Potassium 4.6 mmol/L (3.4-5.0); Sodium 137 mmol/L (137-145)
[2023-11-25] MEDS: KETOROLAC 15 MG/ML VIAL (*BKC) IV PUSH (02:48)
[2023-11-25] MEDS: ACETAMINOPHEN 325 MG TABLET 650 MG PO (02:48)
[2023-11-25] MEDS: AMOXICILLIN/CLAVULANATE K 875-125 MG TAB 1 TABLET PO (03:09)
== END 2023-11-25 03:16 | disposition home or self-care (01) ==
PROVIDERS: Physician Assistant; Emergency Provider Emergency Medicine; PCP Registered Nurse
DX: L03.213 Periorbital cellulitis (principal); D64.9 Anemia, unspecified; Z98.84 Bariatric surgery status; Z87.891 Personal history of nicotine dependence; Z90.49 Acquired absence of other specified parts of digestive tract
CPT/HCPCS: 36415; 70481; 80048; 85025; 85055; 85652; 86140; 96374; 99284; A9270; J1885; Q9967

== ENCOUNTER 2024-01-26 16:13 | Emergency (ER) | payer OTHER, SELFPAY ==
[2024-01-26] VITALS (33 sets, daily range): BP systolic 110–128; BP diastolic 66–80; PULSE 67–89; RESP 0–22; TEMP 36.5–37; O2SAT 98–100
[2024-01-26 16:43] LABS: Basophils Absolute Auto 0.1 K/mm3 (0.0-0.1); Basophils Percent Auto 1.6 % (0.2-1.2); Eosinophils Absolute Auto 0.1 K/mm3 (0-0.3); Eosinophils Percent Auto 1.5 % (0-4.4); Hematocrit 27.8 % (37.0-47.0); Hemoglobin 7.6 g/dL (12.0-15.0); Immature Granulocyte Absolute 0.03 K/mm3 (0.00-0.031); Immature Granulocyte Percent A 0.5 % (0-0.5); Lymphocytes Percent Auto 26.2 % (18.3-44.2); Mean Corpuscular HGB Conc 27.3 g/dl (32-36); Mean Corpuscular Hemoglobin 17.3 pg (26-34); Mean Corpuscular Volume 63.3 fl (80-100); Mean Platelet Volume 9.9 fl (7.4-10.4); Monocytes Absolute Auto 0.6 K/mm3 (0.1-0.6); Monocytes Percent Auto 9.2 % (2.6-8.5); Neutrophils Absolute Auto 3.7 K/mm3 (1.3-6.7); Platelet Count Result 331 k/mm3 (150-375); Red Blood Count 4.39 M/mm3 (4.2-5.4); Red Cell Distribution Width 18.1 % (11.5-14.5); White Blood Count 6.1 K/mm3 (4.5-10.0)
[2024-01-26 17:17] LABS: Platelet Estimate Adequate (Adequate)
[2024-01-26 17:18] LABS: Hypochromasia 1+; Microcytosis 2+ (NORMAL); Ovalocytes 1+
[2024-01-26 17:20] LABS: Schistocytes None Seen
[2024-01-26] MEDS: SODIUM CHLORIDE 0.9% IV 250 ML 30 ML IV CONT (17:53)
--- NOTE | 2024-01-26 19:03 | ED_ITS ---
HPI - General Adult General Chief complaint: Recheck/Abnormal Lab/Rx Stated complaint: PCP sent for hemoglobin Time Seen by Provider: 01/26/24 16:35 History of Present Illness HPI narrative: patient is a 43-year-old female who presents ER for anemia. Her PCP ran outpatient blood work and told her she needed a blood transfusion. Patient has long history of iron deficiency anemia. She has had gastric bypass which led to her becoming anemic. She also reports menorrhagia. No current vaginal bleeding. Her PCP is also arranging for an EGD/ colonoscopy. She is not on blood thinners. She does report some lightheadedness when going from sitting to standing but no syncope. Exertional shortness of breath noted. Related Data Allergies Allergy/AdvReac Type Severity Reaction Status Date / Time No Known Allergies Allergy Verified 01/26/24 16:34 Review of Systems Review of Systems: All systems reviewed & are unremarkable except as noted in HPI and below Constitutional: Constitutional: Denies chills, Reports fatigue and Denies fever(s) Cardiovascular: Cardiovascular: Reports no additional cardiovascular complaints Respiratory: Respiratory: Reports no additional respiratory complaints Gastrointestinal: Gastrointestinal: Reports no additional gastrointestinal complaints Genitourinary: Genitourinary: Reports no additional female genitourinary complaints Neurologic: Denies syncope [facility] Past Medical History Medical History Miscarriage, threatened, early No significant past medical history Surgical History Surgical History History of appendectomy History of sleeve gastrectomy Hx of cholecystectomy Family History Family History Mother Diabetes mellitus High cholesterol Mother Hypertension Son Epilepsy Other Miscarriage, threatened, early Social History Social History Smoking packs per day: 1 Smoking cigarettes per day: 20.0 Years smoked: 14 Smoking pack-years: 14.00 Smoking status: Former smoker Tobacco type: cigarettes Second hand tobacco smoke exposure: No Alcohol intake: never Substance use: never Lack of Transportation: No Lack of Food: Never True Current Housing: I Have Housing Concerned About Future Housing: No Difficulty Paying Gas/Electric Bills: No Difficulty Paying for Meds: No Currently Unemployed: No Education: Don't Know Difficulty w/ Childcare or Family Care: No Living arrangements: with family Gender identity (if verbalized by the patient): Female Sexual Orientation (if Verbalized by the Patient): Straight or Heterosexual Spiritual care concerns: Yes (sikh) Exam Narrative: GENERAL: Well-appearing, well-nourished, and in no acute distress. HEAD: Normocephalic, atraumatic. ENT: Mucous membranes moist. CHEST: Clear to auscultation. No respiratory distress. HEART: Regular rate and rhythm. Normal peripheral pulses. ABDOMEN: Soft, nontender, nondistended. EXTREMITIES: Normal range of motion. No edema. SKIN: Warm, dry, no rash. NEURO: Alert and oriented x3. PSYCH: Normal mood and affect. Course Course Emergency Course: Hemoglobin low. Received 1 unit transfusion. Can follow-up with PCP. Vital Signs Vital signs: Vital Signs Temperature 97.7 F 01/26/24 16:19 Pulse Rate 83 01/26/24 16:19 Respiratory Rate 16 01/26/24 16:19 Blood Pressure 110/66 01/26/24 16:19 Pulse Oximetry 100 01/26/24 16:19 Oxygen Delivery Room Air 01/26/24 16:19 Temperature 98.2 F 01/26/24 18:56 Pulse Rate 73 01/26/24 19:43 Respiratory Rate 18 01/26/24 19:43 Blood Pressure 118/79 01/26/24 19:43 Pulse Oximetry 98 01/26/24 19:43 Oxygen Delivery Room Air 01/26/24 16:19 Medical Decision Making Vital Signs Vital Signs: Vital Signs Temperature 97.7 F 01/26/24 16:19 Pulse Rate 83 01/26/24 16:19 Respiratory Rate 16 01/26/24 16:19 Blood Pressure 110/66 01/26/24 16:19 Pulse Oximetry 100 01/26/24 16:19 Oxygen Delivery Room Air 01/26/24 16:19 Temperature 98.2 F 01/26/24 18:56 Pulse Rate 73 01/26/24 19:43 Respiratory Rate 18 01/26/24 19:43 Blood Pressure 118/79 01/26/24 19:43 Pulse Oximetry 98 01/26/24 19:43 Oxygen Delivery Room Air 01/26/24 16:19 Lab Data 01/26/24 16:37 Labs: Lab Results 01/26/24 Range/Units 16:37 WBC 6.1 (4.5-10.0) K/mm3 RBC 4.39 (4.2-5.4) M/mm3 Hgb 7.6 L (12.0-15.0) g/dL Hct 27.8 L (37.0-47.0) % MCV 63.3 L (80-100) fl MCH 17.3 L (26-34) pg MCHC 27.3 L (32-36) g/dl RDW 18.1 H (11.5-14.5) % Plt Count 331 (150-375) k/mm3 MPV 9.9 (7.4-10.4) fl Immature Gran % (Auto) 0.5 (0-0.5) % Neut % (Auto) 61.0 (45.5-73.1) % Lymph % (Auto) 26.2 (18.3-44.2) % Ector % (Auto) 9.2 H (2.6-8.5) % Eos % (Auto) 1.5 (0-4.4) % Baso % (Auto) 1.6 H (0.2-1.2) % Lymph # (Auto) 1.60 (0.9-3.2) K/mm3 Ector # (Auto) 0.6 (0.1-0.6) K/mm3 Eos # (Auto) 0.1 (0-0.3) K/mm3 Baso # (Auto) 0.1 (0.0-0.1) K/mm3 Abs Immat Gran (auto) 0.03 (0.00-0.031) K/mm3 Absolute Neuts (auto) 3.7 (1.3-6.7) K/mm3 Absolute Nucleated RBC 0.000 (0.0-0.012) K/mm3 Nucleated RBC % 0.0 (0.0-0.2) % Platelet Estimate Adequate (Adequate) Hypochromasia 1+ Microcytosis 2+ (NORMAL) Ovalocytes 1+ Schistocytes None seen Blood Type A Positive Antibody Screen Negative Crossmatch See Detail Discharge Plan Discharge Clinical Impression: Anemia Patient Disposition: Home, Self-Care Condition: Stable Instructions: Anemia (ED) Additional Instructions: Follow-up with your primary care doctor for further treatment and evaluation of your anemia. Prescriptions: No Action polysaccharide iron complex 150 mg iron Capsule 150 mg PO BIDWM Qty: 60 0RF ibuprofen 600 mg Tablet 600 mg PO Q6H PRN (Reason: Cramping) Qty: 30 0RF amoxicillin-pot clavulanate 875-125 mg tablet 1 tablet PO Q12H 7 Days Qty: 14 0RF fluticasone propionate [Allergy Relief (fluticasone)] 50 mcg/actuation spray,suspension 1 spray intranasal DAILY Qty: 16 0RF Rx Instructions: administer into each nostril loratadine [Allerclear] 10 mg tablet 10 mg PO DAILY Qty: 30 0RF acetaminophen [Tylenol Extra Strength] 500 mg tablet 1,000 mg PO Q6H PRN (Reason: pain) Qty: 50 0RF ibuprofen 600 mg tablet 600 mg PO TID PRN (Reason: fever or pain) Qty: 30 0RF Follow-up/Referrals: Anitra,ARJUN Mendiola [Primary Care Provider] - 1 Week
== END 2024-01-26 20:52 | disposition home or self-care (01) ==
PROVIDERS: Emergency Medicine; Emergency Provider Emergency Medicine; PCP Registered Nurse
DX: D64.9 Anemia, unspecified (principal); Z98.84 Bariatric surgery status; Z87.891 Personal history of nicotine dependence
CPT/HCPCS: 36415; 36430; 85025; 86850; 86900; 86901; 86923; 96360; 99285; J7050; P9016

== ENCOUNTER 2024-06-23 21:04 | Emergency (ER) | payer MEDICAID, SELFPAY ==
--- OUTSIDE RECORDS SUMMARY | 2024-06-23 21:06 | XMS_ITS | Continuity of Care Document ---
Author Organization [facility] Address [address] [place] [address] Phone Care Team Providers Care Utility Aide Name Role Phone Immunization, [facility] Unavailable Unavailable Procedures Procedure Date COVID-Moderna 12+ Fluzone Quad Influenza 60mcg Injectable Advance Directives Directive Yes / No Effective Date File Name No Information Encounters Encounter Description Practice Location Reason(s) For Visit Diagnoses Date Provider Providers Copied on Encounter [facility], [address] [place], [place], [id number], tel:[phone] [facility] Imm Offsite No Information 4 Immunization [facility]. [address] [place] [address], [id number]. tel:[phone] Family History Family Member Type Diagnosis Age At Onset No Information Payers Payer name Insurance type Covered green party ID Authoriza tion(s) No Information Social History Type Description Quantity Date Captured Comments Sex Female Smoking Status No Information Chief Complaint And Reason For Visit No Information Reason For Referral Reason For Referral No Information History Of Present Illness Encounter Date Complaint History Of Prese nt Illness No Information Functional Status Date Functional Assessmen t No Information Instructions Date Instruction Additional Infor mation No Information Assessments Type Assessment Date No Information Patient Care Teams Name Effective Dates (start - stop) Status Members No Information
--- OUTSIDE RECORDS SUMMARY | 2024-06-23 21:06 | XMS_ITS | Referral Summary ---
Author Organization [facility] Address [address] [place] [address] Care Team Providers Care Wearing Apparel Assembler Name Role Phone Maury Ayoub OCCASIONAL CAREGIVER Unavailable [phone] Maury Ayoub NP Primary Care Provider [phone] Elvira Toussaint Unavailable Unavailable Nahomy Gonzalez RN Unavailable Nghia Tsai Jr., MD, [facility] Unavailable [phone] Allergies No known active allergies Medications cyanocobalamin (Vitamin B-12) 500 mcg tabletIndications: Prevention of Vitamin B12 Deficiency Take 500 mcg by mouth parts inspector before breakfast Active etonogestreL-ethin yl estradioL (NUVARING, ELURYNG) 0.12-0.015 mg/24 hr vaginal ring USE UTD 01/17/20 20 Active DOK 100 mg capsule Take 100 mg by mouth 2 (two) times a day as needed for constipation 01/25/20 20 Active diphenhydrAMINE (BENADRYL) 25 mg capsule Take 25 mg by mouth every 6 (six) hours as needed for itching, allergies or sleep Active protein powderIndications: supplement Take by mouth every morning Active ascorbic acid/collagen hydr (COLLAGEN PLUS VITAMIN C ORAL)Indications:s upplement Take 1 tablet by mouth every morning Active ferrous sulfate 325 mg (65 mg of elemental iron) tabletIndications: Iron Deficiency Anemia Take 65 mg of elemental iron by mouth daily with breakfast Active oxyCODONE (ROXICODONE) 5 mg immediate release tabletIndications: Pain Take 1 tablet (5 mg total) by mouth every 6 (six) hours as needed for pain 20 tablet 09/20/19 21 Active escitalopram (LEXAPRO) 10 mg tablet TAKE 1 TABLET BY MOUTH ONCE DAILY IN THE MORNING 08/15/19 21 Active ferrous gluconate 324 mg (38 mg of elemental iron) tablet Take 324 mg by mouth 2 (two) times a day 08/30/19 21 Active ibuprofen (ADVIL,MOTRIN) 800 mg tablet Take 800 mg by mouth 3 (three) times a day 08/30/19 21 Active Balcoltra 0.1 mg-0.02 mg (21)/36.5 mg(7) tablet Take 1 tablet by mouth daily 08/30/19 21 Active Tab-A-Margareth 400 mcg tablet Take 1 tablet by mouth daily 08/15/19 21 Active Annovera 0.15-0.013 mg/24 hour ring 08/15/19 21 Active hydrocortisone 2.5 % cream 01/04/20 21 Active ondansetron ODT (ZOFRAN-ODT) 8 mg disintegrating tablet 11/21/19 21 Active acetaminophen ER (TYLENOL) 650 mg 8 hr tabletIndications: Excessive and redundant skin and subcutaneous tissue Take 1 tablet (650 mg total) by mouth every 8 (eight) hours as needed for pain 30 tablet 01/24/20 21 Active ibuprofen (ADVIL,MOTRIN) 600 mg tabletIndications: Excessive and redundant skin and subcutaneous tissue TAKE 1 TABLET BY MOUTH EVERY 6 HOURS NEEDED FOR PAIN 30 tablet 04/03/19 22 Active Active Problems Problem Noted Date Diagnosed Date Iron deficiency anemia due to chronic blood loss 09/17/2021 Intertrigo 06/16/2020 Overview (06/16/2020): Added automatically from request for surgery [id number] Excess skin 06/16/2020 Overview (06/16/2020): Added automatically from request for surgery [id number] Abdominal pannus 11/30/2019 Overview (11/30/2019): Added automatically from request for surgery [id number] Excess skin of arm 11/30/2019 Overview (11/30/2019): Added automatically from request for surgery [id number] Status post gastric bypass for obesity 9 History of bariatric surgery 06/04/2018 Overview (06/04/2018): Added automatically from request for surgery [id number] Nausea and vomiting 06/04/2018 Overview (06/04/2018): Added automatically from request for surgery [id number] Morbid (severe) obesity due to excess calories 1 04/07/2017 Overview (02/05/2018): Added automatically from request for surgery [id number] Pre-diabetes 01/07/2018 Hypercholesteremia 01/07/2018 Morbid obesity 10/16/2017 Major depressive disorder, recurrent episode, mo derate 10/16/2017 Social History Tobacco Use Types Packs/Day Years Used Date Smoking Tobacco: Former Cigarettes 0.3 16.1 2 04/2017 Smokeless Tobacco: Never Alcohol Use Standard Drinks/Week Comments Not Currently 0 (1 standard drink = 0.6 oz pur e alcohol) rare AUDIT-C Answer Date Recorded Q1: How often do you have a drink containing alc ohol? 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 Gender Identity Not on file Sexual Orientation Not on file Last Filed Vital Signs Vital Sign Reading Time Taken Comments Blood Pressure 113/64 09/11/2020 4:50 PM CDT Pulse 78 09/11/2020 4:50 PM CDT Temperature 36.4 C (97.5 F) 09/11/2020 2:40 PM CDT Respiratory Rate 19 09/11/2020 4:50 PM CDT Oxygen Saturation 99% 09/11/2020 4:50 PM CDT Inhaled Oxygen Concentration - - Weight 69.9 kg (154 lb) 08/30/2020 11:00 AM CDT Height 160 cm (5' 3 ) 08/30/2020 11:00 AM CDT Body Mass Index 27.28 08/30/2020 11:00 AM CDT Plan of Treatment Not on file Insurance [facility]SC [facility] Advance Directives For more information, please contact: [phone] * Full Code (Latest Code Status on File) Date Activated Date Inactivated Comments 12/07/2019 5:03 PM 12/08/2019 6:03 PM * Full Code Date Activated Date Inactivated Comments 06/11/2018 2:08 PM 06/11/2018 9:01 PM * Full Code Date Activated Date Inactivated Comments 04/22/2018 5:41 PM 04/25/2018 6:54 PM Care Teams Wearing Apparel Assembler Relationship Specialty Start Date End Date Maury Ayoub NP PCP - General 03/25/17 Maury Ayoub NP 03/19/17 Elvira Toussaint 11/12/17 Nahomy Gonzalez RN Licensed Practical Nurse 06/04/18 Bennett Tsai Jr., MD Medical Oncologist/Punch Card Operator Medical Oncology 09/17/21
--- OUTSIDE RECORDS SUMMARY | 2024-06-23 21:06 | XMS_ITS | Clinical Summary ---
Author Organization [facility] Address [address] [place] [address] Care Team Providers Care Diesel Locomotive Firer/Fireman Name Role Phone Maury Ayoub PHOTOGRAPHY SALES ASSOCIATE Unavailable [phone] Maury Ayoub NP Primary Care Provider [phone] Elvira Toussaint Unavailable Unavailable Nahomy Gonzalez RN Unavailable Nghia Tsai Jr., MD, [facility] Unavailable [phone] Allergies No known active allergies Medications cyanocobalamin (Vitamin B-12) 500 mcg tabletIndications: Prevention of Vitamin B12 Deficiency Take 500 mcg by mouth early childhood worker before breakfast Active etonogestreL-ethin yl estradioL (NUVARING, [...] (06/16/2020): Added automatically from request for surgery [id number] Excess skin 06/16/2020 Overview (06/16/2020): Added automatically from request for surgery [id number] Abdominal pannus 11/30/2019 Overview (11/30/2019): Added automatically from request for surgery [id number] Excess skin of arm 11/30/2019 Overview (11/30/2019): Added automatically from request for surgery [id number] Status post gastric bypass for obesity 9 History of bariatric surgery 06/04/2018 Overview (06/04/2018): Added automatically from request for surgery [id number] Nausea and vomiting 06/04/2018 Overview (06/04/2018): Added automatically from request for surgery [id number] Morbid (severe) obesity due to excess calories 1 04/07/2017 Overview (02/05/2018): Added automatically from request for surgery [id number] Pre-diabetes 01/07/2018 Hypercholesteremia 01/07/2018 Morbid obesity 10/16/2017 Major depressive disorder, recurrent episode, mo derate 10/16/2017 Surgical History Surgery Date Site/Laterality Comments SECTION 2010, 2004, 2000, 1998 x4 CHOLECYSTECTOMY 03/09/2012 - 03/08/2013 GASTRIC BYPASS 03/09/2018 - 03/08/2019 PANNICULECTOMY 03/09/2019 - 03/08/2020 Medical History Medical History Date Comments Morbid obesity (HCC) Pre-diabetes Hypercholesteremia BYNUM (nonalcoholic steatohepatitis) Depression Family History Medical History Relation Name Comments Alcohol abuse Father Alcohol depend ency - (Added by TW Conv) Depression Father Family history of depression - (Added by TW Conv) Diabetes Father Family history of diabetes mellitus - (Added by TW Conv) Hypertension Father Family history of hypertension - (Added by TW Conv) Obesity Father Family history of obesity - (Added by TW Conv) Depression Mother Family history of depression - (Added by TW Conv) Diabetes Mother Family history of diabetes mellitus - (Added by TW Conv) Hypertension Mother Family history of hypertension - (Added by TW Conv) Obesity Mother Family history of obesity - (Added by TW Conv) Obesity Other 1 Family history of obesity - (Added by TW Conv) Obesity Other 2 Family history of obesity - Relation: Grandparent (Added by TW Conv) Diabetes Other 3 Family history of diabetes mellitus - Relation: Grandparent (Added by TW Conv) Heart disease Other 4 Family history of cardiac disorder - Relation: Grandparent (Added by TW Conv) Hypertension Other 5 Family history of hypertension - Relation: Grandparent (Added by TW Conv) Cancer Other 6 Family history of malignant neoplasm - Relation: Grandparent (Added by TW Conv) Depression Other 7 Family history of depression - (Added by TW Conv) Anesthesia problems Neg Hx Relation Name Status Comments Father Mother Other 1 Other 2 Other 3 Other 4 Other 5 Other 6 Other 7 Social History Tobacco Use Types Packs/Day Years Used Date Smoking Tobacco: Former Cigarettes 0.3 16.1 2 002 - 04/2017 Smokeless Tobacco: Never Alcohol Use Standard [...] on file Legal Sex Female 3:41 PM DRYWALL STRIPPER Gender Identity Not on file Sexual Orientation Not on file Obstetrics History Last Filed Vital Signs Vital Sign Reading [...] Plan of Treatment Not on file Insurance [facility] [place] MEDICAID [facility] IDPA [facility] Advance Directives For more information, please contact: [phone] * Full Code (Latest Code Status on File) Date Activated Date Inactivated Comments 12/07/2019 5:03 PM 12/08/2019 6:03 PM * Full Code Date Activated Date Inactivated Comments 06/11/2018 2:08 PM 06/11/2018 9:01 PM * Full Code Date Activated Date Inactivated Comments 04/22/2018 5:41 PM 04/25/2018 6:54 PM Care Teams Diesel Locomotive Firer/Fireman Relationship Specialty Start Date End Date Maury Ayoub NP PCP - General 03/25/17 Maury Ayoub NP 03/19/17 Elvira Toussaint 11/12/17 Nahomy Gonzalez RN Licensed Practical Nurse 06/04/18 Bennett Tsai Jr., MD Medical Oncologist/City Magistrate Medical Oncology 09/17/21
--- OUTSIDE RECORDS SUMMARY | 2024-06-23 21:06 | XMS_ITS | Clinical Summary ---
Author Organization [facility] Address [address] [place] [address] Care Team Providers Care Slide Maker Name Role Phone Maury Ayoub PMP CERTIFIED PROJECT MANAGER-HEALTH INFORMATION MANAGEMENT DIRECTOR Primary Care Pro vider Source Comments [facility],non-owned Affiliates and Associated Physician Practices is amultiple site organization consisting of ambulatory clinics and hospital sitesin [place], [place], [place] and [place]. This disclosure is being madepursuant to the Care Everywhere program and may not contain all information available regarding this patient. Last updated 17.[facility] Encounters Date Type Department Care Team Description 06/16/2024 Telephone [facility] MATERNAL/ EVALUATION UNIT [address] [place] [address] Mya Perez Scheduling from Last 3 Months Social History Tobacco Use Types Packs/Day Years Used Date Smoking Tobacco: Never Alcohol Use Standard Drinks/Week Comments No 0 (1 standard drink = 0.6 oz pur e alcohol) Comments Unknown Sex and Gender Information Value Date Recorded Sex Assigned at Not on file Legal Sex Female 5:36 PM SHEET TESTER Gender Identity Not on file Sexual Orientation Not on file Last Filed Vital Signs Vital Sign Reading Time Taken Comments Blood Pressure 128/62 08/10/2016 7:15 PM CDT Pulse 87 08/10/2016 7:15 PM CDT Temperature 36.6 C (97.8 F) 08/10/2016 3:43 PM CDT Respiratory Rate 25 08/10/2016 7:15 PM CDT Oxygen Saturation 100% 08/10/2016 7:15 PM CDT Inhaled Oxygen Concentration - - Weight 101.6 kg (224 lb) 08/10/2016 3:43 PM CDT Height 160 cm (5' 3 ) 08/10/2016 3:43 PM CDT Body Mass Index 39.68 08/10/2016 3:43 PM CDT Plan of Treatment Health Maintenance Due Date Last Done Comments LIPID TESTING 1979 MAMMOGRAM 1979 PAP SMEAR 1979 HIV SCREENING 11/26/1994 HEPATITIS C SCREENING 11/22/1997 DTAP/TDAP/TD VACCINES (1 - Tdap) 11/26/1998 HEPATITIS B VACCINE (1 of 3 - 19+ 3-dose series) 11/26/1998 COVID-19 VACCINE (1 - 2023-2 5 season) 2023 DEPRESSION SCREENING 03/09/2024 INFLUENZA VACCINE (Season Ended) 2024 ZOSTER VACCINE (1 of 2) 11/26/2029 HIB VACCINE Aged Out No longer eligi ble based on patient's age to complete this topic HPV VACCINE Aged Out No longer eligi ble based on patient's age to complete this topic MENINGOCOCCAL (Group B) VACC INE SHARED DECISION-MAKING Aged Out No longer eligibl e based on patient's age to complete this topic MENINGOCOCCAL GROUPS A/C/Y/W VACCINE Aged Out No longer eligible b ased on patient's age to complete this topic PNEUMOCOCCAL VACCINE Aged Out No long er eligible based on patient's age to complete this topic [place] [address] * Guarantor: Kayla Arnold Account Type Relation to Patient Date of Phone Billing Address Personal/Family Spouse Care Teams Slide Maker Relationship Specialty Start Date End Date Maury Ayoub, SARAH-HEALTH INFORMATION MANAGEMENT DIRECTOR [address] [place] [id number] PCP - General 09/03/15
[2024-06-23 21:08] VITALS: BP 102/65; PULSE 91; RESP 18; TEMP 36.3; O2SAT 100
--- NOTE | 2024-06-23 22:55 | PC.NURSE ---
Patient called into triage bay for lab work. When patient was educated on the lab work that was being done, patient became angry about the wait times and decided to leave to be seen at another facility. Pt ambulated to ED exit with steady gait and no signs for concern at this time.
--- OUTSIDE RECORDS SUMMARY | 2024-06-24 00:19 | XMS_ITS | Clinical Summary ---
Author Organization [facility] Address [address] [place] [address] Care Team Providers Care Edge Grinder Name Role Phone Maury Ayoub SCIENTIFIC INFORMATICS ANALYST Unavailable Maury Ayoub NP Primary Care Provider [phone] Elvira Toussaint Unavailable Unavailable Nahomy Gonzalez RN Unavailable Nghia Tsai Jr., MD, [facility] Unavailable [phone] Allergies No known active allergies Medications cyanocobalamin (Vitamin B-12) 500 mcg tabletIndications: Prevention of Vitamin B12 Deficiency Take 500 mcg by mouth pipe maker before breakfast Active etonogestreL-ethin yl estradioL (NUVARING, [...] (06/16/2020): Added automatically from request for surgery [id number] Excess skin 06/16/2020 Overview (06/16/2020): Added automatically from request for surgery [id number] Abdominal pannus 11/30/2019 Overview (11/30/2019): Added automatically from request for surgery [id number] Excess skin of arm 11/30/2019 Overview (11/30/2019): Added automatically from request for surgery [id number] Status post gastric bypass for obesity 9 History of bariatric surgery 06/04/2018 Overview (06/04/2018): Added automatically from request for surgery [id number] Nausea and vomiting 06/04/2018 Overview (06/04/2018): Added automatically from request for surgery [id number] Morbid (severe) obesity due to excess calories 1 04/07/2017 Overview (02/05/2018): Added automatically from request for surgery [id number] Pre-diabetes 01/07/2018 Hypercholesteremia 01/07/2018 Morbid obesity 10/16/2017 [...] on file Legal Sex Female 3:41 PM HUMAN RESOURCES OFFICE MANAGER Gender Identity Not on file Sexual Orientation [...] Plan of Treatment Not on file Insurance [facility] [place] MEDICAID [facility] IDPA [facility] Advance Directives For more information, please contact: [phone] * Full Code (Latest Code Status on File) Date Activated Date Inactivated Comments 12/07/2019 5:03 PM 12/08/2019 6:03 PM * Full Code Date Activated Date Inactivated Comments 06/11/2018 2:08 PM 06/11/2018 9:01 PM * Full Code Date Activated Date Inactivated Comments 04/22/2018 5:41 PM 04/25/2018 6:54 PM Care Teams Edge Grinder Relationship Specialty Start Date End Date Maury Ayoub NP PCP - General 03/25/17 Maury Ayoub NP 03/19/17 Elvira Toussaint 11/12/17 Nahomy Gonzalez RN Licensed Practical Nurse 06/04/18 Bennett Tsai Jr., MD Medical Oncologist/Clinic Receptionist Medical Oncology 09/17/21
--- OUTSIDE RECORDS SUMMARY | 2024-06-24 00:19 | XMS_ITS | Continuity of Care Document ---
Author Organization [facility] Address [address] [place] [address] Phone Care Team Providers Care Executive Director Of Nursing Name Role Phone Immunization, [facility] Unavailable Unavailable Procedures Procedure Date COVID-Moderna 12+ Fluzone Quad Influenza 60mcg Injectable Advance Directives Directive Yes / No Effective Date File Name No Information Encounters Encounter Description Practice Location Reason(s) For Visit Diagnoses Date Provider Providers Copied on Encounter [facility], [address] [place], [place], [id number], tel:[phone] [facility] Imm Offsite No Information 4 Immunization [facility]. [address] [place] [address], [id number]. tel:[phone] Family History Family Member Type Diagnosis Age At Onset No Information Payers Payer name Insurance type Covered libertarian ID Authoriza tion(s) No Information Social History [...]
--- OUTSIDE RECORDS SUMMARY | 2024-06-24 00:19 | XMS_ITS | Referral Summary ---
Author Organization [facility] Address [address] [place] [id number] Care Team Providers Care Swimming Pool Cleaner Name Role Phone Maury Ayoub MUD MILL TENDER Unavailable [phone] Maury Ayoub NP Primary Care Provider [phone] Elvira Toussaint Unavailable Unavailable Nahomy Gonzalez RN Unavailable Nghia Tsai Jr., MD, [facility] Unavailable [phone] Allergies No known active allergies Medications cyanocobalamin (Vitamin B-12) 500 mcg tabletIndications: Prevention of Vitamin B12 Deficiency Take 500 mcg by mouth rf engineer before breakfast Active etonogestreL-ethin yl estradioL (NUVARING, [...] (06/16/2020): Added automatically from request for surgery [id number] Excess skin 06/16/2020 Overview (06/16/2020): Added automatically from request for surgery [id number] Abdominal pannus 11/30/2019 Overview (11/30/2019): Added automatically from request for surgery [id number] Excess skin of arm 11/30/2019 Overview (11/30/2019): Added automatically from request for surgery [id number] Status post gastric bypass for obesity 9 History of bariatric surgery 06/04/2018 Overview (06/04/2018): Added automatically from request for surgery [id number] Nausea and vomiting 06/04/2018 Overview (06/04/2018): Added automatically from request for surgery [id number] Morbid (severe) obesity due to excess calories 1 04/07/2017 Overview (02/05/2018): Added automatically from request for surgery [id number] Pre-diabetes 01/07/2018 Hypercholesteremia 01/07/2018 Morbid obesity 10/16/2017 [...] on file 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 Gender Identity Not on file Sexual Orientation [...] Plan of Treatment Not on file Insurance [facility] [employer] [facility] Advance Directives For more information, please contact: [phone] * Full Code (Latest Code Status on File) Date Activated Date Inactivated Comments 12/07/2019 5:03 PM 12/08/2019 6:03 PM * Full Code Date Activated Date Inactivated Comments 06/11/2018 2:08 PM 06/11/2018 9:01 PM * Full Code Date Activated Date Inactivated Comments 04/22/2018 5:41 PM 04/25/2018 6:54 PM Care Teams Swimming Pool Cleaner Relationship Specialty Start Date End Date Maury Ayoub NP PCP - General 03/25/17 Maury Ayoub NP 03/19/17 Elvira Toussaint 11/12/17 Nahomy Gonzalez RN Licensed Practical Nurse 06/04/18 Bennett Tsai Jr., MD Medical Oncologist/Compensation Business Partner Medical Oncology 09/17/21
--- OUTSIDE RECORDS SUMMARY | 2024-06-24 00:19 | XMS_ITS | Clinical Summary ---
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 This disclosure is being madepursuant to the Care Everywhere program and may not contain all information available regarding this patient. Last updated 17.[facility] Encounters Date Type Department Care Team Description 06/16/2024 Telephone [facility] MATERNAL/ EVALUATION UNIT 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
== END 2024-06-24 00:29 | disposition left against medical advice (07) ==
PROVIDERS: PCP Registered Nurse
DX: R10.13 Epigastric pain (principal)
CPT/HCPCS: 99199